=== PATIENT | female | born 1985 | race African-American/Black ===

== ENCOUNTER 2018-03-18 13:26 | Inpatient (IN) | payer OTHER ==
[2018-03-18 13:55] VITALS: BMI 42.0
[2018-03-18 14:11] LABS: HCG,QUALITATIVE URINE Negative
[2018-03-18 14:15] LABS: URINE APPEARANCE CLEAR; URINE BILIRUBIN NEGATIVE (<2.0 mg/dL); URINE COLOR LTYELLOW; URINE GLUCOSE (UA) NEGATIVE (NEGATIVE); URINE KETONE NEGATIVE (NEGATIVE); URINE LEUK ESTERASE NEGATIVE (NEGATIVE); URINE NITRITE NEGATIVE (NEGATIVE); URINE PROTEIN 3+ (NEGATIVE); URINE UROBILINOGEN NEGATIVE mg/dL (0.2-1.0)
[2018-03-18 14:57] LABS: EPI CELLS RARE /HPF (FEW); URINE BACTERIA RARE /hpf (NONE SEEN)
--- NOTE | 2018-03-18 15:08 | PDOC ---
History of Present Illness - General Chief Complaint: Pain Stated Complaint: PAIN Time Seen by Provider: 03/18/18 14:32 History Source: Patient Exam Limitations: No Limitations - History of Present Illness Initial Comments: 03/18/18 19:04 Patient is a 32-year-old female with past medical history of lupus, chronic kidney disease, who presents to the ER with right flank pain for one week. Patient states that she feels like the pain is stabbing her in the back. She also states she has some pain when she is and has some associated right lower quadrant tenderness. She was referred to the ER by her infection control practitioner for a CAT scan of her kidneys. Patient denies fevers, chills, nausea, vomiting, diarrhea, constipation, chest pain, shortness of breath, edema and lightheadedness. Past History - Travel Traveled outside of the country in the last 30 days: No Close contact w/someone who was outside of country & ill: No - Past Medical History Allergies/Adverse Reactions: Allergies Allergy/AdvReac Type Severity Reaction Status Date / Time oxycodone [Oxycodone] Allergy Intermediate Hives Verified 03/18/18 13:44 gabapentin Allergy Swelling Verified 03/18/18 13:44 lactose Allergy Verified 03/18/18 13:44 shellfish derived Allergy Verified 03/18/18 13:44 Home Medications: Ambulatory Orders Hydroxychloroquine Sulfate 200 mg PO BID 08/06/12 Mycophenolate Mofetil [Cellcept -] 360 mg PO BID 08/06/12 Simvastatin [Zocor -] 20 mg PO DAILY 08/06/12 predniSONE [Deltasone -] 10 mg PO DAILY 08/06/12 Losartan Potassium [Cozaar] 100 mg PO DAILY 05/14/15 Spironolactone [Aldactone -] 25 mg PO BID 05/14/15 Furosemide [Lasix -] 40 mg PO DAILY 11/29/15 Amitriptyline HCl [Elavil -] 25 mg PO HS 03/18/18 Amlodipine Besylate [Norvasc -] 10 mg PO DAILY 03/18/18 Guar Gum [Benefiber] 1 each PO BID PRN 03/18/18 Metoprolol Tartrate [Lopressor] 100 mg PO BID 03/18/18 Torsemide [Demadex -] 20 mg PO BID 03/18/18 Tramadol HCl/Acetaminophen [Ultracet Tablet] 1 each PO QID PRN 03/18/18 Zolpidem Tartrate [Ambien] 10 mg PO HS PRN 03/18/18 Simvastatin 20 mg PO HS 03/19/18 Anemia: No Asthma: Yes (NO RECENT ATTACK) Cancer: No Cardiac Disorders: No CVA: No COPD: No CHF: No Dementia: No Diabetes: No GI Disorders: Yes (GERD. GASTRITIS) Disorders: Yes (H/O RENAL BX) HTN: Yes Hypercholesterolemia: Yes Seizures: No Thyroid Disease: No - Surgical History Abdominal Surgery: Yes (REPAIR UMBILICAL HERNIA) Appendectomy: No Cardiac Surgery: No Cholecystectomy: No Lung Surgery: No Neurologic Surgery: No Orthopedic Surgery: No - Suicide/Smoking/Psychosocial Hx Smoking Status: No Smoking History: Never smoked Have you smoked in the past 12 months: No Number of Cigarettes Smoked Daily: 0 Hx Alcohol Use: Yes (SOCIALLY) Drug/Substance Use Hx: No Substance Use Type: None Review of Systems - Review of Systems Able to Perform ROS?: Yes Comments:: 03/18/18 18:54 CONSTITUTIONAL: Absent: fever, chills, diaphoresis, generalized weakness, malaise, loss of appetite HEENT: Absent: rhinorrhea, nasal congestion, throat pain, throat swelling, difficulty swallowing, mouth swelling, ear pain, eye pain, visual Changes CARDIOVASCULAR: Absent: chest pain, loss of consciousness, palpitations, irregular heart rate, peripheral edema RESPIRATORY: Absent: cough, shortness of breath, dyspnea with exertion, orthopnea, wheezing, stridor, hemoptysis GASTROINTESTINAL: Present: abdominal pain Absent: abdominal pain, abdominal distension, nausea, vomiting, diarrhea, constipation, melena, hematochezia GENITOURINARY: Present: R flank pain Absent: dysuria, frequency, urgency, hesitancy, hematuria , flank pain, genital pain MUSCULOSKELETAL: Absent: myalgia, arthralgia, joint swelling SKIN: Absent: rash, itching, pallor HEMATOLOGIC/IMMUNOLOGIC: Absent: easy bleeding, easy bruising, lymphadenopathy, frequent infections ENDOCRINE: Absent: unexplained weight gain, unexplained weight loss, heat intolerance, cold intolerance NEUROLOGIC: Absent: headache, focal weakness or paresthesias, dizziness, unsteady gait, seizure, mental status changes, bladder or bowel incontinence PSYCHIATRIC: Absent: anxiety, depression, suicidal or homicidal ideation, hallucinations. Is the patient limited Guinean proficient: No *Physical Exam - Vital Signs Last Vital Signs Temp Pulse Resp BP Pulse Ox 98.5 F 116 H 18 174/110 H 100 03/18/18 13:53 03/18/18 13:53 03/18/18 13:53 03/18/18 13:53 03/18/18 13:53 - Physical Exam Comments: 03/18/18 18:54 GENERAL: Well developed, well nourished. Awake and alert. No acute distress. HEENT: Normocephalic, atraumatic. PERRLA, EOMI. No conjunctival pallor. Sclera are non- icteric. Moist mucous membranes. Oropharynx is clear. NECK: Supple. Full ROM. No JVD. Carotid pulses 2+ and symmetric, without bruits. No thyromegaly. No lymphadenopathy. CARDIOVASCULAR: Regular rate and rhythm. No murmurs, rubs, or gallops. Distal pulses are 2+ and symmetric. PULMONARY: No evidence of respiratory distress. Lungs clear to auscultation bilaterally. No wheezing, rales or rhonchi. ABDOMINAL: TTP RLQ. Soft. Non-distended. No rebound or guarding. No organomegaly. Normoactive bowel sounds. MUSCULOSKELETAL Normal range of motion at all joints. No bony deformities or tenderness. (+) R CVA tenderness. EXTREMITIES: No cyanosis. No clubbing. No edema. No calf tenderness. SKIN: Warm and dry. Normal capillary refill. No rashes. No jaundice. NEUROLOGICAL: Alert, awake, appropriate. Cranial nerves 2-12 intact. No deficits to light touch and temperature in face, upper extremities and lower extremities. No motor deficits in the in face, upper extremities and lower extremities. Normoreflexic in the upper and lower extremities. Normal speech. Toes are down- going bilaterally. Gait is normal without ataxia. PSYCHIATRIC: Cooperative. Good eye contact. Appropriate mood and affect. Moderate Sedation - Procedure Monitoring Vital Signs: Procedure Monitoring Vital Signs Temperature 98.5 F 03/18/18 13:53 Pulse Rate 116 H 03/18/18 13:53 Respiratory Rate 18 03/18/18 13:53 Blood Pressure 174/110 H 03/18/18 13:53 O2 Sat by Pulse Oximetry (%) 100 03/18/18 13:53 ED Treatment Course - LABORATORY CBC & Chemistry Diagram: 03/19/18 09:32 03/19/18 09:32 - ADDITIONAL ORDERS Additional order review: Laboratory Results 03/18/18 13:50 Urine Color Ltyellow Urine Appearance Clear Urine pH 5.0 Ur Specific [place] 1.013 Urine Protein 3+ H Urine Glucose (UA) Negative Urine Ketones Negative Urine Blood 1+ H Urine Nitrite Negative Urine Bilirubin Negative Urine Urobilinogen Negative Ur Leukocyte Esterase Negative Urine WBC (Auto) 3 Urine RBC (Auto) <1 Ur Epithelial Cells Rare Urine Bacteria Rare Urine HCG, Qual Negative Medical Decision Making - Medical Decision Making 03/18/18 19:26 Patient is alert here female past medical history of lupus who presents to the ER with 1 week of right flank pain. On exam patient with right flank tenderness. Lab work shows no leukocytosis at this time. Urine positive for blood, os [place]. Patient sent for CT and pending results. Sign out given to KALINA Nelson *DC/Admit/Observation/Transfer Diagnosis at time of Disposition: Acute on chronic renal failure Qualifiers: Acute renal failure type: unspecified Chronic kidney disease stage: stage 3 ( moderate) Qualified Code(s): N17.9 - Acute kidney failure, unspecified - Referrals - Patient Instructions - Post Discharge Activity
[2018-03-18 17:46] LABS: BASO % 0.9 % (0-2.0); EOS % 1.2 % (0-4.5); HEMATOCRIT 28.3 % (32.4-45.2); HEMOGLOBIN 9.5 GM/dL (10.7-15.3); LYMPH % 8.7 % (8-40); MCH 28.9 pg (25.7-33.7); MCHC 33.4 g/dl (32.0-36.0); MEAN CELL VOLUME 86.5 fl (80-96); MEAN PLT VOLUME 10.5 fl (7.5-11.1); MONO % 6.4 % (3.8-10.2); NEUT % 82.8 % (42.8-82.8); PLATELET COUNT 139 K/MM3 (134-434); RBC 3.27 M/mm3 (3.60-5.2); RDW 14.4 % (11.6-15.6)
[2018-03-18 18:11] LABS: ALBUMIN 2.4 g/dl (3.4-5.0); ALK PHOS 50 U/L (45-117); ANION GAP 7 MMOL/L (8-16); BILIRUBIN,TOTAL 0.2 mg/dL (0.2-1); BLOOD UREA NITROGEN 35 mg/dL (7-18); CALCIUM 8.2 mg/dL (8.5-10.1); CHLORIDE 113 mmol/L (98-107); CO2 25 mmol/L (21-32); GLUCOSE,RANDOM 102 mg/dL (74-106); POTASSIUM 4.2 mmol/L (3.5-5.1); SGOT/AST 19 U/L (15-37); SGPT/ALT 23 U/L (13-61); SODIUM 145 mmol/L (136-145); TOT PROT 4.8 g/dl (6.4-8.2)
[2018-03-18] MEDS ORDERED: SODIUM CHLORIDE 1,000 ML IV STA (19:09)
[2018-03-18] MEDS ORDERED: ACETAMINOPHEN 1000 MG/100 ML VIAL (NON FORMULARY) IVPB ONE (19:09)
[2018-03-18] MEDS ORDERED: ACETAMINOPHEN INJECTION 100 ML IVPB ONE (21:12)
--- NOTE | 2018-03-18 23:03 | PDOC ---
*Physical Exam - Vital Signs Last Vital Signs Temp Pulse Resp BP Pulse Ox 98.5 F 116 H 18 174/110 H 100 03/18/18 13:53 03/18/18 13:53 03/18/18 13:53 03/18/18 13:53 03/18/18 13:53 ED Treatment Course - LABORATORY CBC & Chemistry Diagram: 03/18/18 16:55 03/18/18 16:55 - ADDITIONAL ORDERS Additional order review: Laboratory Results 03/18/18 03/18/18 16:55 13:50 Sodium 145 Potassium 4.2 Chloride 113 H Carbon Dioxide 25 Anion Gap 7 L BUN 35 H Creatinine 4.0 H Creat Clearance w eGFR 12.98 Random Glucose 102 Calcium 8.2 L Total Bilirubin 0.2 AST 19 ALT 23 Alkaline Phosphatase 50 Total Protein 4.8 L Albumin 2.4 L Urine Color Ltyellow Urine Appearance Clear Urine pH 5.0 Ur Specific [place] 1.013 Urine Protein 3+ H Urine Glucose (UA) Negative Urine Ketones Negative Urine Blood 1+ H Urine Nitrite Negative Urine Bilirubin Negative Urine Urobilinogen Negative Ur Leukocyte Esterase Negative Urine WBC (Auto) 3 Urine RBC (Auto) <1 Ur Epithelial Cells Rare Urine Bacteria Rare Urine HCG, Qual Negative 03/18/18 16:55 RBC 3.27 L MCV 86.5 MCHC 33.4 RDW 14.4 D MPV 10.5 Neutrophils % 82.8 Lymphocytes % 8.7 D Monocytes % 6.4 Eosinophils % 1.2 Basophils % 0.9 - Medications Given in the ED: ED Medications Discontinued Medications Generic Name Dose Route Start Last Admin Trade Name Freq PRN Reason Stop Dose Admin Acetaminophen 1,000 mg 03/18/18 19:09 03/18/18 21:24 Ofirmev Injection - IVPB 03/18/18 19:10 1,000 mg ONCE ONE Administration Sodium Chloride 1,000 mls @ 1,000 mls/hr 03/18/18 19:09 03/18/18 21:24 Normal Saline - IV 03/18/18 20:08 1,000 mls/hr ASDIR STA Administration Medical Decision Making - Medical Decision Making Patient was signed out to me by KALINA Latham Patient resting in NAD, denies any pain CT A/P was negative for any acute findings Labs notable for Cr of 4 Patient endorses to me that her Cr was 2.69 around 4 months ago (has results on her phone; gets her care at [facility]) Concern for almost doubling of her Cr Do not think this is prerenal given patient does not appear dehydrated (denies vomiting, diarrhea); could be related to her lupus Patient's mixer diamond powder and rheumatologists are at [facility] and unable to reach at this time Will admit to hospital for further evaluation 03/18/18 22:59 *DC/Admit/Observation/Transfer Diagnosis at time of Disposition: Acute on chronic renal failure Qualifiers: Acute renal failure type: unspecified Chronic kidney disease stage: stage 3 ( moderate) Qualified Code(s): N17.9 - Acute kidney failure, unspecified; N18.3 - Chronic kidney disease, stage 3 (moderate) - Discharge Dispostion Decision to Admit order: Yes - Referrals Referrals: David Rangel MD [Primary Care Provider] - - Patient Instructions - Post Discharge Activity
--- NOTE | 2018-03-18 23:31 | HP ---
CHIEF COMPLAINT:Right Flank Pain PCP:David Rangel MD HISTORY OF PRESENT ILLNESS: Nury Mcneil is a 32 yr old F, medical condition RA, Lupus, HTN, Insomnia, CKD stage 3, presented to ED for c/o right flank pain x 1 week. pt called her Chicken Cleaner at [facility] and advised to go to the hospital to get scan done. pt seen in ED, looks comfortable, denies sob, chest pain, dizziness, reports decreased urine output for 1 week, has not been taking diuretics as prescribed, stopped taking over a week ago, due to having to constantly urinate at work. CT scan done, no hydronephrosis, pt able to pull up labs from Oct from [facility] , creat 2.68. In ED, unable to contact beam press operator at [facility], pt in agreement to be admitted ER course was notable for: (1)Creat 4.0 (2)decreased urine output (3)CT scan negative Recent Travel: PAST MEDICAL HISTORY:RA, Lupus, HTN, Insomnia, CKD stage 3 PAST SURGICAL HISTORY:Hernia repair Social History: Smoking:Denies Alcohol:Denies Drugs: Denies Family History: Allergies oxycodone [Oxycodone] Allergy (Intermediate, Verified 03/18/18 13:44) Hives gabapentin Allergy (Verified 03/18/18 13:44) Swelling lactose Allergy (Verified 03/18/18 13:44) shellfish derived Allergy (Verified 03/18/18 13:44) HOME MEDICATIONS: Home Medications Medication Instructions Recorded Hydroxychloroquine Sulfate 200 mg PO BID 08/06/12 Mycophenolate Mofetil [Cellcept -] 360 mg PO BID 08/06/12 Simvastatin [Zocor -] 20 mg PO DAILY 08/06/12 predniSONE [Deltasone -] 10 mg PO DAILY 08/06/12 Losartan Potassium [Cozaar] 100 mg PO DAILY 05/14/15 Spironolactone [Aldactone -] 25 mg PO BID 05/14/15 Furosemide [Lasix -] 40 mg PO DAILY 11/29/15 Amitriptyline HCl [Elavil -] 25 mg PO HS 03/18/18 Amlodipine Besylate [Norvasc -] 10 mg PO DAILY 03/18/18 Guar Gum [Benefiber] 1 each PO BID PRN 03/18/18 Metoprolol Tartrate [Lopressor] 100 mg PO BID 03/18/18 Torsemide [Demadex -] 20 mg PO BID 03/18/18 Tramadol HCl/Acetaminophen 1 each PO QID PRN 03/18/18 [Ultracet Tablet] Zolpidem Tartrate [Ambien] 10 mg PO HS PRN 03/18/18 REVIEW OF SYSTEMS CONSTITUTIONAL: Absent: fever, chills, diaphoresis, generalized weakness, malaise, loss of appetite, weight change HEENT: Absent: rhinorrhea, nasal congestion, throat pain, throat swelling, difficulty swallowing, mouth swelling, ear pain, eye pain, visual changes CARDIOVASCULAR: Absent: chest pain, syncope, palpitations, irregular heart rate, lightheadedness , peripheral edema RESPIRATORY: Absent: cough, shortness of breath, dyspnea with exertion, orthopnea, wheezing, stridor, hemoptysis GASTROINTESTINAL: Absent: abdominal pain, abdominal distension, nausea, vomiting, diarrhea, constipation, melena, hematochezia GENITOURINARY: +Right flank pain, decreased urine output Absent: dysuria, frequency, urgency, hesitancy, hematuria, genital pain MUSCULOSKELETAL: Absent: myalgia, arthralgia, joint swelling, back pain, neck pain SKIN: Absent: rash, itching, pallor HEMATOLOGIC/IMMUNOLOGIC: Absent: easy bleeding, easy bruising, lymphadenopathy, frequent infections ENDOCRINE: Absent: unexplained weight gain, unexplained weight loss, heat intolerance, cold intolerance NEUROLOGIC: Absent: headache, focal weakness or paresthesias, dizziness, unsteady gait, seizure, mental status changes, bladder or bowel incontinence PSYCHIATRIC: Absent: anxiety, depression, suicidal or homicidal ideation, hallucinations. PHYSICAL EXAMINATION Vital Signs - 24 hr 03/18/18 13:53 Temperature 98.5 F Pulse Rate 116 H Respiratory 18 Rate Blood Pressure 174/110 H O2 Sat by Pulse 100 Oximetry (%) GENERAL: Awake, alert, and fully oriented, in no acute distress. HEAD: Normal with no signs of trauma. EYES: Pupils equal, round and reactive to light, extraocular movements intact, sclera anicteric, conjunctiva clear. No lid lag. EARS, NOSE, THROAT: Ears normal, nares patent, oropharynx clear without exudates. Moist mucous membranes. NECK: Normal range of motion, supple without lymphadenopathy, JVD, or masses. LUNGS: Breath sounds equal, clear to auscultation bilaterally. No wheezes, and no crackles. No accessory muscle use. HEART: Regular rate and rhythm, normal S1 and S2 without murmur, rub or gallop. ABDOMEN: Soft, nontender, not distended, normoactive bowel sounds, no guarding, no rebound, no masses. No hepatomegaly or splenomegaly. MUSCULOSKELETAL: Normal range of motion at all joints. No bony deformities or tenderness. No CVA tenderness. UPPER EXTREMITIES: 2+ pulses, warm, well-perfused. No cyanosis. No clubbing. No peripheral edema. LOWER EXTREMITIES: 2+ pulses, warm, well-perfused. No calf tenderness. + 2 b/l pitting edema NEUROLOGICAL: Cranial nerves II-XII intact. Normal speech. Normal gait. PSYCHIATRIC: Cooperative. Good eye contact. Appropriate mood and affect. SKIN: Warm, dry, normal turgor, no rashes or lesions noted, normal capillary refill. Laboratory Results - last 24 hr 03/18/18 03/18/18 03/18/18 13:50 16:55 16:55 WBC 9.0 RBC 3.27 L Hgb 9.5 L Hct 28.3 L MCV 86.5 MCH 28.9 MCHC 33.4 RDW 14.4 D Plt Count 139 MPV 10.5 Absolute Neuts (auto) 7.5 Neutrophils % 82.8 Lymphocytes % 8.7 D Monocytes % 6.4 Eosinophils % 1.2 Basophils % 0.9 Nucleated RBC % 0 Sodium 145 Potassium 4.2 Chloride 113 H Carbon Dioxide 25 Anion Gap 7 L BUN 35 H Creatinine 4.0 H Creat Clearance w eGFR 12.98 Random Glucose 102 Calcium 8.2 L Total Bilirubin 0.2 AST 19 ALT 23 Alkaline Phosphatase 50 Total Protein 4.8 L Albumin 2.4 L Urine Color Ltyellow Urine Appearance Clear Urine pH 5.0 Ur Specific [place] 1.013 Urine Protein 3+ H Urine Glucose (UA) Negative Urine Ketones Negative Urine Blood 1+ H Urine Nitrite Negative Urine Bilirubin Negative Urine Urobilinogen Negative Ur Leukocyte Esterase Negative Urine WBC (Auto) 3 Urine RBC (Auto) <1 Ur Epithelial Cells Rare Urine Bacteria Rare Urine HCG, Qual Negative ASSESSMENT/PLAN: Nury Mcneil is a 32 yr old F, medical condition RA, Lupus, CKD stage 3, HTN, Insomnia admitted to observation Admitting Diagnosis Acute on Chronic Kidney Disease Chronic Problems RA Lupus HTN CKD stage 3 A/P: #acute on CKD stage 3, Lupus nephritis? -renal consult -renal US -monitor BMP -diuretics on hold #RA #Lupus -resume home meds -on prednisone -Rheum consult in AM #Right flank pain -CT negative -UA no leukocystosis #HTN -resume BB, norvasc Dispo: requires inpatient treatment Renal Diet DVT prophylaxis:Heparin q12hrs Visit type - Emergency Visit Emergency Visit: Yes Care time: The patient presented to the Emergency Department on the above date and was hospitalized for further evaluation of their emergent condition. - New Patient This patient is new to me today: Yes Date on this admission: 03/18/18 - Critical Care Critical Care patient: No
[2018-03-19] MEDS ORDERED: cloNIDine HCL 0.1 MG TABLET PO ONE (04:34)
[2018-03-19] MEDS ORDERED: PT OWN MED DRAWER 7, Y5N ONE (09:01)
[2018-03-19] MEDS: amLODIPine BESYLATE 10 MG TABLET (FP) PO SCH (09:49)
[2018-03-19] MEDS: METOPROLOL TARTRATE 50 MG TABLET (FP) PO SCH ×2 (09:49→21:37)
[2018-03-19] MEDS: HEPARIN NA (PORCINE) 5,000 UNITS/ML 1ML VIAL SQ SCH ×2 (09:50→21:37)
[2018-03-19 09:53] LABS: BASO % 1.1 % (0-2.0); EOS % 1.6 % (0-4.5); HEMATOCRIT 25.8 % (32.4-45.2); HEMOGLOBIN 8.4 GM/dL (10.7-15.3); LYMPH % 21.9 % (8-40); MCH 28.4 pg (25.7-33.7); MCHC 32.8 g/dl (32.0-36.0); MEAN CELL VOLUME 86.8 fl (80-96); MEAN PLT VOLUME 10.6 fl (7.5-11.1); MONO % 8.3 % (3.8-10.2); NEUT % 67.1 % (42.8-82.8); PLATELET COUNT 122 K/MM3 (134-434); RBC 2.97 M/mm3 (3.60-5.2); RDW 14.8 % (11.6-15.6); WHITE BLOOD COUNT 6.6 K/mm3 (4.0-10.0)
[2018-03-19] MEDS ORDERED: predniSONE 10 MG TABLET (UD) PO SCH (10:00)
[2018-03-19 10:25] LABS: ALK PHOS 41 U/L (45-117); ANION GAP 8 MMOL/L (8-16); BILIRUBIN,TOTAL 0.2 mg/dL (0.2-1); BLOOD UREA NITROGEN 35 mg/dL (7-18); CALCIUM 8.3 mg/dL (8.5-10.1); CHLORIDE 114 mmol/L (98-107); CO2 24 mmol/L (21-32); GLUCOSE,RANDOM 83 mg/dL (74-106); MAGNESIUM 1.9 mg/dL (1.8-2.4); POTASSIUM 4.1 mmol/L (3.5-5.1); SGOT/AST 16 U/L (15-37); SGPT/ALT 18 U/L (13-61); SODIUM 146 mmol/L (136-145); TOT PROT 4.2 g/dl (6.4-8.2)
--- NOTE | 2018-03-19 10:47 | CON.NEP ---
Consult Consult Specialty:: Nephrology Reason for Consultation:: lima - History of Present Illness Chief Complaint: back pain History of Present Illness: Nury Mcniel is a 32 yr old F with RA, Lupus, HTN, Insomnia, Biopsy proven lupus nephritis CKD stage 3, presented to ED for c/o back pain x1 week. pt called her Deputy Administrator at [facility] and advised to go to the hospital to get scan done. States she has been on multiple medications for her nephritis and her prednisone recently has been tapered. Her last creat 2.68 2 months ago. Denies sob, chest pain, dizziness, reports decreased urine output for 1 week, has not been taking diuretics as prescribed, stopped taking over a week ago, due to having to constantly urinate at work. CT scan done, no hydronephrosis, She still has foamy urine - History Source History Provided By: Patient Limitations to Obtaining History: No Limitations - Past Medical History Pulmonary: Yes: Asthma Renal/: Yes: Renal Inusuff ...LMP: 05/05/14 ...: No Rheumatology: Yes: Lupus, Rheumatoid Arthritis - Alcohol/Substance Use Hx Alcohol Use: Yes (SOCIALLY) - Smoking History Smoking history: Never smoked Have you smoked in the past 12 months: No Aproximately how many cigarettes per day: 0 Home Medications - Allergies Allergies/Adverse Reactions: Allergies Allergy/AdvReac Type Severity Reaction Status Date / Time oxycodone [Oxycodone] Allergy Intermediate Hives Verified 03/18/18 13:44 gabapentin Allergy Swelling Verified 03/18/18 13:44 lactose Allergy Verified 03/18/18 13:44 shellfish derived Allergy Verified 03/18/18 13:44 - Home Medications Home Medications: Ambulatory Orders Hydroxychloroquine Sulfate 200 mg PO BID 08/06/12 Mycophenolate Mofetil [Cellcept -] 360 mg PO BID 08/06/12 Simvastatin [Zocor -] 20 mg PO DAILY 08/06/12 predniSONE [Deltasone -] 10 mg PO DAILY 08/06/12 Losartan Potassium [Cozaar] 100 mg PO DAILY 05/14/15 Spironolactone [Aldactone -] 25 mg PO BID 05/14/15 Furosemide [Lasix -] 40 mg PO DAILY 11/29/15 Amitriptyline HCl [Elavil -] 25 mg PO HS 03/18/18 Amlodipine Besylate [Norvasc -] 10 mg PO DAILY 03/18/18 Guar Gum [Benefiber] 1 each PO BID PRN 03/18/18 Metoprolol Tartrate [Lopressor] 100 mg PO BID 03/18/18 Torsemide [Demadex -] 20 mg PO BID 03/18/18 Tramadol HCl/Acetaminophen [Ultracet Tablet] 1 each PO QID PRN 03/18/18 Zolpidem Tartrate [Ambien] 10 mg PO HS PRN 03/18/18 Review of Systems - Review of Systems Constitutional: reports: No Symptoms Eyes: reports: No Symptoms HENT: reports: No Symptoms Neck: reports: No Symptoms Cardiovascular: reports: Edema Respiratory: reports: SOB Gastrointestinal: reports: No Symptoms Genitourinary: reports: Other (reduced urine output) Breasts: reports: No Symptoms Reported Musculoskeletal: reports: Back Pain Neurological: reports: Other (neuropathy) Endocrine: reports: No Symptoms Hematology/Lymphatic: reports: No Symptoms Psychiatric: reports: No Symptoms Nephrology Consult - Height Height: 5 ft 9 in - Weight Weight: 285 lb 2 oz - BMI Body Mass Index (BMI): 42.0 - Lab Results CBC,BMP: CBC, BMP 03/19/18 09:32 03/19/18 09:32 Anion Gap: Anion Gap Anion Gap 8 MMOL/L (8-16) 03/19/18 09:32 - Imaging Cat Scan: Report Reviewed (no significant findings) - Physical Examination Vital Signs: Vital Signs Temperature 98.0 F 03/19/18 05:48 Pulse Rate 90 03/19/18 05:48 Respiratory Rate 18 03/19/18 05:48 Blood Pressure 156/108 H 03/19/18 05:48 O2 Sat by Pulse Oximetry (%) 99 03/19/18 02:59 Constitutional: Yes: Well Nourished, No Distress, Calm Eyes: Yes: Conjunctiva Clear HENT: Yes: Atraumatic Neck: Yes: Supple, Trachea Midline Cardiovascular: Yes: Regular Rate and Rhythm Respiratory: Yes: Regular, CTA Bilaterally Gastrointestinal: Yes: Normal Bowel Sounds, Soft Renal/: Yes: WNL Musculoskeletal: Yes: WNL Extremities: Yes: WNL Edema: LLE: 1+, RLE: 1+ Neurological: Yes: Alert, Oriented Psychiatric: Yes: Alert, Oriented Assessment/Plan IMPRESSION suspect worsening of her lupus nephritis possibly from being tapered on her prednisone. She does not want to increase the prednisone because she has symptoms from this but giben her proteinuria nad hematuria I think this is what should be done. She has tried Rituxan in past with poor response. Her back pain is likely related to the levoscoliosis she has in her lumbar area and not to her kidneys PLAN obtain records from internal sales at [facility] if possible would increase her prednisone to 60 mg for now and observe She will need a fistula if possible, though can be done as outpatient Ask rheum to eval here MV
[2018-03-19] MEDS: MYCOPHENOLATE SODIUM 360 MG TABLET.DR PO SCH ×2 (10:49→21:37)
[2018-03-19] MEDS: HYDROXYCHLOROQUINE SO4 200 MG TABLET (FP) PO SCH ×2 (10:49→21:37)
[2018-03-19] MEDS ORDERED: ACETAMINOPHEN 325 MG TABLET (FP) PO PRN (14:33)
[2018-03-19] MEDS ORDERED: traMADol HCL 50 MG TABLET PO ONE (14:35)
[2018-03-19] MEDS: predniSONE 20 MG TABLET (UD) PO SCH (15:15)
[2018-03-19] MEDS: ACETAMINOPHEN/CAFFEINE/BUTALBITAL 1 TAB PO PRN (17:23)
--- NOTE | 2018-03-19 19:21 | PN ---
Physical Exam: SUBJECTIVE: Patient seen and examined at the bedside. having headaches, at home she takes Naproxyn for headaches. asked her not to take nsaids as it may compromise her kidney function further. will order fiorecet. will benefit from neuro consult outpatient. OBJECTIVE: symphony coverage for dr herrera hypertensive today Vital Signs Period Temp Pulse Resp BP Sys/Garvin Pulse Ox Last 24 Hr 97.4 F-98.4 F 75-98 17-20 143-199/76-109 99-100 GENERAL: Awake, alert, and fully oriented, in no acute distress. HEAD: Normal with no signs of trauma. EYES: Pupils equal, round and reactive to light, extraocular movements intact, sclera anicteric, conjunctiva clear. No lid lag. EARS, NOSE, THROAT: Ears normal, nares patent, oropharynx clear without exudates. Moist mucous membranes. NECK: Normal range of motion, supple without lymphadenopathy, JVD, or masses. LUNGS: Breath sounds equal, clear to auscultation bilaterally. No wheezes, and no crackles. No accessory muscle use. HEART: Regular rate and rhythm, normal S1 and S2 without murmur, rub or gallop. ABDOMEN: Soft, nontender, not distended, normoactive bowel sounds, no guarding, no rebound, no masses. No hepatomegaly or splenomegaly. MUSCULOSKELETAL: Normal range of motion at all joints. No bony deformities or tenderness. No CVA tenderness. UPPER EXTREMITIES: 2+ pulses, warm, well-perfused. No cyanosis. No clubbing. No peripheral edema. LOWER EXTREMITIES: 2+ pulses, warm, well-perfused. No calf tenderness. + 2 b/l pitting edema NEUROLOGICAL: Cranial nerves II-XII intact. Normal speech. Normal gait. PSYCHIATRIC: Cooperative. Good eye contact. Appropriate mood and affect. SKIN: Warm, dry, normal turgor, no rashes or lesions noted, normal capillary refill. Laboratory Results - last 24 hr 03/19/18 03/19/18 09:32 09:32 WBC 6.6 RBC 2.97 L Hgb 8.4 L Hct 25.8 L MCV 86.8 MCH 28.4 MCHC 32.8 RDW 14.8 Plt Count 122 L MPV 10.6 Absolute Neuts (auto) 4.4 Neutrophils % 67.1 Lymphocytes % 21.9 D Monocytes % 8.3 Eosinophils % 1.6 Basophils % 1.1 Nucleated RBC % 0 Sodium 146 H Potassium 4.1 Chloride 114 H Carbon Dioxide 24 Anion Gap 8 BUN 35 H Creatinine 4.0 H Creat Clearance w eGFR 12.98 Random Glucose 83 Calcium 8.3 L Magnesium 1.9 Total Bilirubin 0.2 AST 16 ALT 18 Alkaline Phosphatase 41 L Total Protein 4.2 L Albumin 2.0 L Active Medications Generic Name Dose Route Start Last Admin Trade Name Freq PRN Reason Stop Dose Admin Acetaminophen/Butalbital/Caffeine 1 tablet 03/19/18 16:53 03/19/18 17:23 Fioricet - PO 1 tablet Q6H PRN Administration HEADACHE Amitriptyline HCl 25 mg 03/19/18 22:00 Elavil - PO HS MARCELLO Amlodipine Besylate 10 mg 03/19/18 10:00 03/19/18 09:49 Norvasc - PO 10 mg DAILY MARCELLO Administration Heparin Sodium (Porcine) 5,000 unit 03/19/18 10:00 03/19/18 09:50 Heparin - SQ 5,000 unit BID MARCELLO Administration Hydralazine HCl 10 mg 03/19/18 22:00 Apresoline - PO TID MARCELLO Hydroxychloroquine Sulfate 200 mg 03/19/18 10:00 03/19/18 10:49 Plaquenil - PO 200 mg BID MARCELLO Administration Metoprolol Tartrate 100 mg 03/19/18 10:00 03/19/18 09:49 Lopressor - PO 100 mg BID MARCELLO Administration Mycophenolate Sodium 360 mg 03/19/18 10:00 03/19/18 10:49 Mycophenolic Acid PO 360 mg BID MARCELLO Administration Prednisone 60 mg 03/19/18 11:00 03/19/18 15:15 Deltasone - PO Not Given DAILY MARCELLO ASSESSMENT/PLAN: Patient is a 32 yr old female with a past med hx of RA, Lupus, CKD stage 3, hypertension, morbid obesity and insomnia. She was found to have acute on chronic kidney disease and was placed on observation. Renal: Acute on chronic kidney disease Creat at 2.0 at base line, currently at 4.0. renal consulted and following Monitor labs, hold diuretics Right flank pain No evidence of kidney infection on imaging UA no leukocytosis Possible muscular skeletal. manage pain, renal dose meds. Rheum: Lupus, on prednisone rheum consulted Card: Hypertension, uncontrolled On BB, Norvasc, Hydralazine tid monitor bp Dispo: requires inpatient treatment Renal Diet DVT prophylaxis:Heparin q12hrs Visit type - Emergency Visit Emergency Visit: Yes ED Registration Date: 03/18/18 Care time: The patient presented to the Emergency Department on the above date and was hospitalized for further evaluation of their emergent condition. - New Patient This patient is new to me today: Yes Date on this admission: 03/19/18 - Critical Care Critical Care patient: No - Discharge Referral Referred to [facility] No
[2018-03-19] MEDS: hydrALAZINE HCL 10 MG TABLET PO SCH (21:36)
[2018-03-19] MEDS: AMITRIPTYLINE HCL 25 MG TABLET (FP) PO SCH (21:37)
[2018-03-19] MEDS ORDERED: ATORVASTATIN CA 20 MG TABLET (FP) PO ONE (23:04)
[2018-03-20] MEDS: hydrALAZINE HCL 10 MG TABLET PO SCH (06:05)
[2018-03-20] MEDS ORDERED: PT OWN MED DRAWER 7, Y5N ONE ×2 (09:36→20:39)
[2018-03-20] MEDS: ACETAMINOPHEN/CAFFEINE/BUTALBITAL 1 TAB PO PRN (09:42)
[2018-03-20] MEDS: predniSONE 20 MG TABLET (UD) PO SCH ×3 (09:43→14:18)
[2018-03-20] MEDS: HEPARIN NA (PORCINE) 5,000 UNITS/ML 1ML VIAL SQ SCH ×2 (09:44→22:40)
[2018-03-20] MEDS: MYCOPHENOLATE SODIUM 360 MG TABLET.DR PO SCH ×2 (09:44→22:39)
[2018-03-20] MEDS: METOPROLOL TARTRATE 50 MG TABLET (FP) PO SCH ×2 (09:44→22:39)
[2018-03-20] MEDS: amLODIPine BESYLATE 10 MG TABLET (FP) PO SCH (09:46)
[2018-03-20] MEDS: HYDROXYCHLOROQUINE SO4 200 MG TABLET (FP) PO SCH ×2 (09:46→22:39)
--- NOTE | 2018-03-20 11:12 | PN ---
Progress Note (short form) - Note Progress Note: RENAL Remains hypertensive has not taken the higher dose of prednisone because she is afraid she will get an infection She has been using nsaids because of cramping when taking diuretics Last Vital Signs Temp Pulse Resp BP Pulse Ox 98.0 F 66 20 198/131 H 100 03/20/18 06:00 03/20/18 06:00 03/20/18 06:00 03/20/18 06:00 03/20/18 02:00 lungs crackles at bases cvs s1s2 rr abd soft ext +edema neuro a+ox3 CBC, BMP 03/19/18 09:32 03/19/18 09:32 Current Medications Generic Name Dose Route Start Last Admin Trade Name Freq PRN Reason Stop Dose Admin Acetaminophen/Butalbital/Caffeine 1 tablet 03/19/18 16:53 03/20/18 09:42 Fioricet - PO 1 tablet Q6H PRN Administration HEADACHE Amitriptyline HCl 25 mg 03/19/18 22:00 03/19/18 21:37 Elavil - PO 25 mg HS MARCELLO Administration Amlodipine Besylate 10 mg 03/19/18 10:00 03/20/18 09:46 Norvasc - PO 10 mg DAILY MARCELLO Administration Atorvastatin Calcium 20 mg 03/20/18 22:00 Lipitor - PO HS MARCELLO Heparin Sodium (Porcine) 5,000 unit 03/19/18 10:00 03/20/18 09:44 Heparin - SQ 5,000 unit BID MARCELLO Administration Hydralazine HCl 25 mg 03/20/18 14:00 Apresoline - PO TID MARCELLO Hydroxychloroquine Sulfate 200 mg 03/19/18 10:00 03/20/18 09:46 Plaquenil - PO 200 mg BID MARCELLO Administration Metoprolol Tartrate 100 mg 03/19/18 10:00 03/20/18 09:44 Lopressor - PO 100 mg BID MARCELLO Administration Mycophenolate Sodium 360 mg 03/19/18 10:00 03/20/18 09:44 Mycophenolic Acid PO 360 mg BID MARCELLO Administration Prednisone 60 mg 03/19/18 11:00 03/20/18 09:43 Deltasone - PO 10 mg DAILY MARCELLO Administration IMPRESSION probable progression of her ckd due to decrease in steroid dose in addition to NSAID use for cramping caused by hypokalemia during diuretic use PLAN restart losartan and spironolactone she will take the prednisone monitor renal function renal sono MV
[2018-03-20] MEDS ORDERED: SPIRONOLACTONE 25 MG TABLET (FP) PO ONE (11:14)
[2018-03-20] MEDS: LOSARTAN POTASSIUM 50 MG TABLET (FP) PO SCH (11:36)
--- NOTE | 2018-03-20 11:58 | PN ---
Physical Exam: SUBJECTIVE: Patient seen ambulating around pod. feels well, not short of breath OBJECTIVE: bp uncontrolled overnight, consulted chief accounting officer patient denies cp or shortness of breath had an echo done 3 weeks ago hydralazine increased to 25mg tid avoid dropping pressure too quickly Vital Signs Period Temp Pulse Resp BP Sys/Garvin Pulse Ox Last 24 Hr 98.0 F-98.8 F 66-80 18-20 143-198/76-131 100-100 GENERAL: Awake, alert, and fully oriented, in no acute distress. HEAD: Normal with no signs of trauma. EYES: Pupils equal, round and reactive to light, extraocular movements intact, sclera anicteric, conjunctiva clear. No lid lag. EARS, NOSE, THROAT: Ears normal, nares patent, oropharynx clear without exudates. Moist mucous membranes. NECK: Normal range of motion, supple without lymphadenopathy, JVD, or masses. LUNGS: Breath sounds equal, clear to auscultation bilaterally. No wheezes, and no crackles. No accessory muscle use. HEART: Regular rate and rhythm, normal S1 and S2 without murmur, rub or gallop. ABDOMEN: Soft, nontender, not distended, normoactive bowel sounds, no guarding, no rebound, no masses. No hepatomegaly or splenomegaly. MUSCULOSKELETAL: Normal range of motion at all joints. No bony deformities or tenderness. No CVA tenderness. UPPER EXTREMITIES: 2+ pulses, warm, well-perfused. No cyanosis. No clubbing. No peripheral edema. LOWER EXTREMITIES: 2+ pulses, warm, well-perfused. No calf tenderness. + 2 b/l pitting edema NEUROLOGICAL: Cranial nerves II-XII intact. Normal speech. Normal gait. PSYCHIATRIC: Cooperative. Good eye contact. Appropriate mood and affect. SKIN: Warm, dry, normal turgor, no rashes or lesions noted, normal capillary refill. Active Medications Generic Name Dose Route Start Last Admin Trade Name Freq PRN Reason Stop Dose Admin Acetaminophen/Butalbital/Caffeine 1 tablet 03/19/18 16:53 03/20/18 09:42 Fioricet - PO 1 tablet Q6H PRN Administration HEADACHE Amitriptyline HCl 25 mg 03/19/18 22:00 03/19/18 21:37 Elavil - PO 25 mg HS MARCELLO Administration Amlodipine Besylate 10 mg 03/19/18 10:00 03/20/18 09:46 Norvasc - PO 10 mg DAILY MARCELLO Administration Atorvastatin Calcium 20 mg 03/20/18 22:00 Lipitor - PO HS [facility] Heparin Sodium (Porcine) 5,000 unit 03/19/18 10:00 03/20/18 09:44 Heparin - SQ 5,000 unit BID MARCELLO Administration Hydralazine HCl 25 mg 03/20/18 14:00 Apresoline - PO TID MARCELLO Hydroxychloroquine Sulfate 200 mg 03/19/18 10:00 03/20/18 09:46 Plaquenil - PO 200 mg BID MARCELLO Administration Losartan Potassium 100 mg 03/20/18 11:15 03/20/18 11:36 Cozaar - PO 100 mg DAILY MARCELLO Administration Metoprolol Tartrate 100 mg 03/19/18 10:00 03/20/18 09:44 Lopressor - PO 100 mg BID MARCELLO Administration Mycophenolate Sodium 360 mg 03/19/18 10:00 03/20/18 09:44 Mycophenolic Acid PO 360 mg BID MARCELLO Administration Prednisone 60 mg 03/19/18 11:00 03/20/18 11:39 Deltasone - PO 60 mg DAILY MARCELLO Administration ASSESSMENT/PLAN: Patient is a 32 yr old female with a past med hx of RA, Lupus, CKD stage 3, hypertension, morbid obesity and insomnia. She was found to have acute on chronic kidney disease and was placed on observation. Renal: Acute on chronic kidney disease Creat at 2.0 at base line, currently at 4.0. renal consulted and following Monitor labs, hold diuretics renal u/s negative for acute findings Right flank pain, improved No evidence of kidney infection on imaging UA no leukocytosis Possible muscular skeletal. manage pain, renal dose meds. Rheum: Lupus, on prednisone rheum consulted Card: Hypertension, uncontrolled Resumed losartan 100mg, Aldactone 25 bid, hydralazine 10 tid Continue Lopressor 100 bid, Norvasc 10 qd, Zocor 20 hs cardiology following Dispo: requires inpatient treatment Renal Diet DVT prophylaxis:Heparin q12hrs Visit type - Emergency Visit Emergency Visit: Yes ED Registration Date: 03/18/18 Care time: The patient presented to the Emergency Department on the above date and was hospitalized for further evaluation of their emergent condition. - New Patient This patient is new to me today: No - Critical Care Critical Care patient: No - Discharge Referral Referred to [facility] No
[2018-03-20 12:56] LABS: BASO % 0.7 % (0-2.0); EOS % 1.6 % (0-4.5); HEMATOCRIT 30.5 % (32.4-45.2); HEMOGLOBIN 9.9 GM/dL (10.7-15.3); LYMPH % 10.1 % (8-40); MCH 28.2 pg (25.7-33.7); MCHC 32.5 g/dl (32.0-36.0); MEAN PLT VOLUME 10.3 fl (7.5-11.1); MONO % 4.7 % (3.8-10.2); NEUT % 82.9 % (42.8-82.8); PLATELET COUNT 139 K/MM3 (134-434); RBC 3.51 M/mm3 (3.60-5.2); RDW 14.7 % (11.6-15.6); WHITE BLOOD COUNT 9.5 K/mm3 (4.0-10.0)
--- NOTE | 2018-03-20 13:12 | CON.CARD ---
Consult Consult Specialty:: Cardiology Referred by:: Hospitalist Medicine - David Rangel MD Reason for Consultation:: Hypertensive urgency - History of Present Illness Chief Complaint: ANEL History of Present Illness: Nury Mcneil is a 32 yr old F, medical condition RA, Lupus, HTN, Insomnia, CKD stage 3, presented to ED for c/o right flank pain x 1 week. pt called her Water Resource Consultant at [facility] and advised to go to the hospital to get CT scan done which was negative for nephrolithiasis. Pt denies sob, chest pain, dizziness, true syncope, reports decreased urine output for 1 week, has not been taking diuretics as prescribed, stopped taking over a week ago, due to having to constantly urinate at work, also used NSAIDs for back pain. pt able to pull up labs from Dec from [place], nia 2.68, BP elevated during hospitalization. Family Assistant: Mary Urena MD [phone] - History Source History Provided By: Patient Limitations to Obtaining History: No Limitations - Past Medical History Pulmonary: Yes: Asthma Renal/: Yes: Renal Inusuff ...LMP: 05/05/14 ...: No Rheumatology: Yes: Lupus, Rheumatoid Arthritis - Alcohol/Substance Use Hx Alcohol Use: Yes (SOCIALLY) - Smoking History Smoking history: Never smoked Have you smoked in the past 12 months: No Aproximately how many cigarettes per day: 0 Home Medications - Allergies Allergies/Adverse Reactions: Allergies Allergy/AdvReac Type Severity Reaction Status Date / Time oxycodone [Oxycodone] Allergy Intermediate Hives Verified 03/18/18 13:44 gabapentin Allergy Swelling Verified 03/18/18 13:44 lactose Allergy Verified 03/18/18 13:44 shellfish derived Allergy Verified 03/18/18 13:44 - Home Medications Home Medications: Ambulatory Orders Hydroxychloroquine Sulfate 200 mg PO BID 08/06/12 Mycophenolate Mofetil [Cellcept -] 360 mg PO BID 08/06/12 Simvastatin [Zocor -] 20 mg PO DAILY 08/06/12 predniSONE [Deltasone -] 10 mg PO DAILY 08/06/12 Losartan Potassium [Cozaar] 100 mg PO DAILY 05/14/15 Spironolactone [Aldactone -] 25 mg PO BID 05/14/15 Furosemide [Lasix -] 40 mg PO DAILY 11/29/15 Amitriptyline HCl [Elavil -] 25 mg PO HS 03/18/18 Amlodipine Besylate [Norvasc -] 10 mg PO DAILY 03/18/18 Guar Gum [Benefiber] 1 each PO BID PRN 03/18/18 Metoprolol Tartrate [Lopressor] 100 mg PO BID 03/18/18 Torsemide [Demadex -] 20 mg PO BID 03/18/18 Tramadol HCl/Acetaminophen [Ultracet Tablet] 1 each PO QID PRN 03/18/18 Zolpidem Tartrate [Ambien] 10 mg PO HS PRN 03/18/18 Simvastatin 20 mg PO HS 03/19/18 Vital Signs: Vital Signs Temperature 98.0 F 03/20/18 06:00 Pulse Rate 66 03/20/18 06:00 Respiratory Rate 20 03/20/18 06:00 Blood Pressure 198/131 H 03/20/18 06:00 O2 Sat by Pulse Oximetry (%) 100 03/20/18 02:00 Constitutional: Yes: No Distress, Calm Neck: Yes: Supple Respiratory: Yes: Regular, CTA Bilaterally Gastrointestinal: Yes: Normal Bowel Sounds, Soft Cardiovascular: Yes: Regular Rate and Rhythm JVD: No Carotid Bruit: No Heart Sounds: Yes: S1, S2 Edema: No - Other Data Labs, Other Data: CBC, BMP 03/20/18 12:25 NSR @ 76 1st deg AVB PR[facility] Imaging - Results Cat Scan: Report Reviewed (No obstruction) Ultrasound: Report Reviewed (No hydro) Problem List - Problems (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 DISEASE IN SYSTEMIC LUPUS ERYTHEMATOSUS (2) Hypertensive heart disease Code(s): I11.9 - HYPERTENSIVE HEART DISEASE WITHOUT HEART FAILURE Qualifiers: Heart failure presence: without heart failure Qualified Code(s): I11.9 - Hypertensive heart disease without heart failure (3) Rheumatoid arthritis Code(s): M06.9 - RHEUMATOID ARTHRITIS, UNSPECIFIED Qualifiers: Rheumatoid factor presence: unspecified presence (4) Acute on chronic renal failure Code(s): N17.9 - ACUTE KIDNEY FAILURE, UNSPECIFIED; N18.9 - CHRONIC KIDNEY DISEASE, UNSPECIFIED Qualifiers: Acute renal failure type: unspecified Chronic kidney disease stage: stage 3 (moderate) Qualified Code(s): N17.9 - Acute kidney failure, unspecified; N18.3 - Chronic kidney disease, stage 3 (moderate) Assessment/Plan 1. Acute on CKD due to decrease in steroid dose in addition to NSAID use for cramping caused by hypokalemia during diuretic use 2. Lupus nephritis 3. Hypertensive urgency 4. RA PLAN 1. Resumed losartan 100qd, Aldactone 25 bid, hydralazine 25 tid per renal 2. Continue Lopressor 100 bid, Norvasc 10 qd, Zocor 20 qhs 3. Maintain on Plaquenil, Cellcept, prednisone per rheum, avoid NSAIDs 4. Had echo 3 weeks ago to assess ventricular and valve fxn, will obtain tomorrow 5. Thank you for consultative opportunity
[2018-03-20 13:24] LABS: ALBUMIN 2.4 g/dl (3.4-5.0); ALK PHOS 50 U/L (45-117); ANION GAP 9 MMOL/L (8-16); BILIRUBIN,TOTAL 0.3 mg/dL (0.2-1); BLOOD UREA NITROGEN 35 mg/dL (7-18); CALCIUM 8.3 mg/dL (8.5-10.1); CHLORIDE 110 mmol/L (98-107); CO2 23 mmol/L (21-32); GLUCOSE,RANDOM 92 mg/dL (74-106); POTASSIUM 4.1 mmol/L (3.5-5.1); SGOT/AST 12 U/L (15-37); SGPT/ALT 20 U/L (13-61); SODIUM 142 mmol/L (136-145); TOT PROT 4.8 g/dl (6.4-8.2)
[2018-03-20] MEDS ORDERED: hydrALAZINE HCL 25 MG TABLET (FP) PO SCH (14:00)
[2018-03-20] MEDS: hydrALAZINE HCL 50 MG TABLET (FP) PO SCH ×2 (20:29→22:40)
[2018-03-20] MEDS ORDERED: hydrALAZINE HCL 10 MG TABLET PO SCH (22:00)
[2018-03-20] MEDS: ATORVASTATIN CA 20 MG TABLET (FP) PO SCH (22:40)
[2018-03-20] MEDS: AMITRIPTYLINE HCL 25 MG TABLET (FP) PO SCH (22:40)
[2018-03-21] MEDS: ACETAMINOPHEN/CAFFEINE/BUTALBITAL 1 TAB PO PRN ×2 (06:34→17:39)
[2018-03-21] MEDS: hydrALAZINE HCL 50 MG TABLET (FP) PO SCH ×3 (06:35→22:03)
--- NOTE | 2018-03-21 08:33 | PN ---
Progress Note (short form) - Note Progress Note: Symphony coverage appreciated. 32 y.o F known from the office . She is being followed for SLE, lupus nephritis at [facility] and recently underwent kidney biopsy. Her Prednisone was decreased from 10 to 7.5 mg She was taking Naprosyn fo low left back pain. She presented to the ER due to LLback pain . urinary infection w/u was negative and renal US negative. Creatinine on admission was 4, reportedly Cr was 2 last at [facility]. She was seen by nephrology and rheum and cardiology. Still c/o left low back pain. Vital Signs (72 hours) 03/18/18 03/18/18 03/18/18 13:53 19:45 23:23 Temperature 98.5 F 98.4 F Pulse Rate 116 H Pulse Rate [ Left Apical] Respiratory 18 Rate Blood Pressure 174/110 H Blood Pressure [Left Arm] O2 Sat by Pulse 100 100 100 Oximetry (%) 03/19/18 03/19/18 03/19/18 02:59 03:23 05:48 Temperature 98.0 F 98.4 F 98.0 F Pulse Rate 98 H 90 Pulse Rate [ 85 Left Apical] Respiratory 17 17 18 Rate Blood Pressure 199/102 H 156/108 H Blood Pressure 165/93 [Left Arm] O2 Sat by Pulse 99 Oximetry (%) 03/19/18 03/19/18 03/19/18 10:00 12:00 14:00 Temperature 97.4 F L Pulse Rate 84 75 80 Pulse Rate [ Left Apical] Respiratory 20 20 20 Rate Blood Pressure 184/109 H 150/76 145/103 H Blood Pressure [Left Arm] O2 Sat by Pulse Oximetry (%) 03/19/18 03/19/18 03/19/18 18:00 18:03 21:00 Temperature 98.4 F Pulse Rate 76 Pulse Rate [ Left Apical] Respiratory 20 20 Rate Blood Pressure 143/96 Blood Pressure [Left Arm] O2 Sat by Pulse 100 Oximetry (%) 03/19/18 03/20/18 03/20/18 22:00 01:38 02:00 Temperature 98.8 F 98.1 F Pulse Rate 72 69 Pulse Rate [ Left Apical] Respiratory 18 18 18 Rate Blood Pressure 183/106 H 154/108 H Blood Pressure [Left Arm] O2 Sat by Pulse 100 Oximetry (%) 0103/20/18 03/20/18 06:00 09:00 10:00 Temperature 98.0 F 98.3 F Pulse Rate 66 77 Pulse Rate [ Left Apical] Respiratory 20 20 20 Rate Blood Pressure 198/131 H 155/117 H Blood Pressure [Left Arm] O2 Sat by Pulse Oximetry (%) 03/20/18 03/20/18 03/20/18 12:00 13:53 15:41 Temperature 98.1 F Pulse Rate 76 72 76 Pulse Rate [ Left Apical] Respiratory 20 Rate Blood Pressure 150/116 H 143/98 146/102 H Blood Pressure [Left Arm] O2 Sat by Pulse Oximetry (%) 03/20/18 03/20/18 03/20/18 17:39 17:40 18:00 Temperature 98.4 F Pulse Rate 72 73 Pulse Rate [ Left Apical] Respiratory 20 20 20 Rate Blood Pressure 152/112 H 158/109 H Blood Pressure [Left Arm] O2 Sat by Pulse Oximetry (%) 03/20/18 03/20/18 03/21/18 21:00 22:40 02:00 Temperature 98.2 F 97.9 F Pulse Rate 74 69 Pulse Rate [ Left Apical] Respiratory 18 18 Rate Blood Pressure 193/124 H 135/90 Blood Pressure [Left Arm] O2 Sat by Pulse 99 99 Oximetry (%) 03/21/18 05:36 Temperature 98 F Pulse Rate 70 Pulse Rate [ Left Apical] Respiratory 18 Rate Blood Pressure 154/95 Blood Pressure [Left Arm] O2 Sat by Pulse Oximetry (%) On PE Obese young F in NAD in bed. Neck supple No JVD Lungs are Clear Heart S1S2 regular Abdomen soft, NT, NO HSM EXT no CCE Left low back tenderness. No CCE Laboratory Results - last 24 hr 03/20/18 03/20/18 12:25 12:25 WBC 9.5 RBC 3.51 L Hgb 9.9 L Hct 30.5 L D MCV 87.0 MCH 28.2 MCHC 32.5 RDW 14.7 Plt Count 139 MPV 10.3 Absolute Neuts (auto) 7.9 Neutrophils % 82.9 H D Lymphocytes % 10.1 D Monocytes % 4.7 Eosinophils % 1.6 Basophils % 0.7 Nucleated RBC % 0 Sodium 142 Potassium 4.1 Chloride 110 H Carbon Dioxide 23 Anion Gap 9 BUN 35 H Creatinine 4.0 H Creat Clearance w eGFR 12.98 Random Glucose 92 Calcium 8.3 L Total Bilirubin 0.3 AST 12 L ALT 20 Alkaline Phosphatase 50 Total Protein 4.8 L Albumin 2.4 L Current Active Problems Problem Status Onset Acute on chronic renal failure Acute Hypertensive heart disease Acute Lupus nephritis Acute Left low back pain HTN Acute Plan Follow CMP, Tramadol for pain CT low back-r/o compression fracture, abscess Rheumatology consult
[2018-03-21] MEDS ORDERED: PT OWN MED DRAWER 7, Y5N ONE (09:01)
[2018-03-21] MEDS: METOPROLOL TARTRATE 50 MG TABLET (FP) PO SCH ×2 (09:06→22:01)
[2018-03-21] MEDS: predniSONE 20 MG TABLET (UD) PO SCH (09:06)
[2018-03-21] MEDS: LOSARTAN POTASSIUM 50 MG TABLET (FP) PO SCH (09:06)
[2018-03-21] MEDS: traMADol HCL 50 MG TABLET PO SCH ×3 (09:06→22:02)
[2018-03-21] MEDS: amLODIPine BESYLATE 10 MG TABLET (FP) PO SCH (09:06)
[2018-03-21] MEDS: MYCOPHENOLATE SODIUM 360 MG TABLET.DR PO SCH ×2 (09:07→22:02)
[2018-03-21] MEDS: HEPARIN NA (PORCINE) 5,000 UNITS/ML 1ML VIAL SQ SCH ×2 (09:07→22:01)
[2018-03-21] MEDS: HYDROXYCHLOROQUINE SO4 200 MG TABLET (FP) PO SCH ×2 (09:08→22:02)
[2018-03-21 09:24] LABS: BASO % 0.8 % (0-2.0); HEMATOCRIT 32.4 % (32.4-45.2); HEMOGLOBIN 9.9 GM/dL (10.7-15.3); LYMPH % 10.5 % (8-40); MCH 26.8 pg (25.7-33.7); MCHC 30.6 g/dl (32.0-36.0); MEAN CELL VOLUME 87.4 fl (80-96); NEUT % 84.7 % (42.8-82.8); PLATELET COUNT 150 K/MM3 (134-434); RDW 14.5 % (11.6-15.6); WHITE BLOOD COUNT 10.3 K/mm3 (4.0-10.0)
[2018-03-21 10:01] LABS: ALBUMIN 2.4 g/dl (3.4-5.0); ALK PHOS 48 U/L (45-117); ANION GAP 10 MMOL/L (8-16); BILIRUBIN,TOTAL 0.6 mg/dL (0.2-1); BLOOD UREA NITROGEN 45 mg/dL (7-18); CALCIUM 8.3 mg/dL (8.5-10.1); CHLORIDE 110 mmol/L (98-107); CO2 22 mmol/L (21-32); CREATININE 4.5 mg/dL (0.55-1.3); GLUCOSE,RANDOM 116 mg/dL (74-106); SGOT/AST 12 U/L (15-37); SGPT/ALT 19 U/L (13-61); SODIUM 142 mmol/L (136-145); TOT PROT 4.8 g/dl (6.4-8.2)
--- NOTE | 2018-03-21 12:01 | PN ---
Progress Note, Physician History of Present Illness: Right flank pain improved. - Current Medication List Current Medications: Active Medications Acetaminophen/Butalbital/Caffeine (Fioricet -) 1 tablet PO Q6H PRN PRN Reason: HEADACHE Last Admin: 03/21/18 06:34 Dose: 1 tablet Amitriptyline HCl (Elavil -) 25 mg PO HS [facility] Last Admin: 03/20/18 22:40 Dose: 25 mg Amlodipine Besylate (Norvasc -) 10 mg PO DAILY [facility] Last Admin: 03/21/18 09:06 Dose: 10 mg Atorvastatin Calcium (Lipitor -) 20 mg PO HS [facility] Last Admin: 03/20/18 22:40 Dose: 20 mg Heparin Sodium (Porcine) (Heparin -) 5,000 unit SQ BID [facility] Last Admin: 03/21/18 09:07 Dose: Not Given Hydralazine HCl (Apresoline -) 50 mg PO TID [facility] Last Admin: 03/21/18 06:35 Dose: 50 mg Hydroxychloroquine Sulfate (Plaquenil -) 200 mg PO BID [facility] Last Admin: 03/21/18 09:08 Dose: 200 mg Losartan Potassium (Cozaar -) 100 mg PO DAILY [facility] Last Admin: 03/21/18 09:06 Dose: 100 mg Metoprolol Tartrate (Lopressor -) 100 mg PO BID [facility] Last Admin: 03/21/18 09:06 Dose: 100 mg Mycophenolate Sodium (Mycophenolic Acid) 360 mg PO BID [facility] Last Admin: 03/21/18 09:07 Dose: 360 mg Prednisone (Deltasone -) 60 mg PO DAILY [facility] Last Admin: 03/21/18 09:06 Dose: 60 mg Tramadol HCl (Ultram -) 25 mg PO TID [facility] Last Admin: 03/21/18 09:06 Dose: 25 mg - Objective Vital Signs: Vital Signs Temperature 97.6 F 03/21/18 10:00 Pulse Rate 73 03/21/18 10:00 Respiratory Rate 18 03/21/18 10:00 Blood Pressure 150/93 03/21/18 10:00 O2 Sat by Pulse Oximetry (%) 99 03/21/18 09:00 Constitutional: Yes: No Distress, Calm Neck: Yes: Supple Cardiovascular: Yes: Regular Rate and Rhythm Respiratory: Yes: Regular, Diminished Gastrointestinal: Yes: Normal Bowel Sounds, Soft, Abdomen, Obese Edema: Yes Edema: LLE: 1+, RLE: 1+ Labs: CBC, BMP 03/21/18 08:53 03/21/18 08:53 Problem List - Problems (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 DISEASE IN SYSTEMIC LUPUS ERYTHEMATOSUS (2) Hypertensive heart disease Code(s): I11.9 - HYPERTENSIVE HEART DISEASE WITHOUT HEART FAILURE Qualifiers: Heart failure presence: without heart failure Qualified Code(s): I11.9 - Hypertensive heart disease without heart failure (3) Rheumatoid arthritis Code(s): M06.9 - RHEUMATOID ARTHRITIS, UNSPECIFIED Qualifiers: Rheumatoid factor presence: unspecified presence (4) Acute on chronic renal failure Code(s): N17.9 - ACUTE KIDNEY FAILURE, UNSPECIFIED; N18.9 - CHRONIC KIDNEY DISEASE, UNSPECIFIED Qualifiers: Acute renal failure type: unspecified Chronic kidney disease stage: stage 3 (moderate) Qualified Code(s): N17.9 - Acute kidney failure, unspecified; N18.3 - Chronic kidney disease, stage 3 (moderate) Assessment/Plan 1. Acute on CKD due to decrease in steroid dose in addition to NSAID use for cramping caused by hypokalemia during diuretic use 2. Lupus nephritis 3. Hypertensive urgency 4. RA PLAN 1. Resumed losartan 100qd and hydralazine 25 tid per renal 2. Continue Lopressor 100 bid, Norvasc 10 qd, Zocor 20 qhs 3. Maintain on Plaquenil, Cellcept, prednisone per rheum, avoid NSAIDs 4. Had echo 3 weeks ago to assess ventricular and valve fxn, will obtain today 5. CT low back-r/o compression fracture
--- NOTE | 2018-03-21 16:52 | CONSULT ---
Consult Consult Specialty:: Rheumatology - History of Present Illness History of Present Illness: The patient is a 32 year old female with history of systemic lupus erythematosus , HTN, CKD stage 3, and history of a new kidney biopsy 3 weeks ago, admitted with a 1 week history of right flank pain and polyuria.. I followed the patient in my office from 10/02/10 to 11/04/15. The patient has lupus since age 17. She has been treated with Prednisone, Hydrxychloroquine, Mycophenolate, Cyclosporin and Tacrolimus. 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 There was mild tubular atrophy, interstitial fibrosis and inflammation. The patient has had progressive chronic kidney disease: Creatinine on 10/2013 was 0.95, on 10/21: 1.68 and on this admission 4.0. On 2015 she had severe hypertension that was poorly controlled and she was not compliant with her medications. At the present time she is been followed by Dr. Ju Davies at [facility]. In 2017 she was treated with pulse steroids and after the 1st dose apparently she developed systemic Herpes Zoster. Furthermore she reports she is allergic to Lyrica and Gabapentin. Three months ago she had a new kidney biopsy, the patient reports she was told there is no progression of lupus activity in the kidney biopsy. (I was not able to obtain report of the biopsy). At the present time she is on Hydroxychloroquine 200 mg BID, Mycophenolate 360 mg/d and Prednisone 7 mg/d. She continues taking the same medication Renal ultrasound and CT of abdomen and pelvis were reported as normal. Laboratory work-up revealed a CBC with a WBC of 10.3, Hgb 9,9, HCT 32.4 and platelets 156, Creatinine on admission was 4 and today 4.5. Urinalysis with protein 3+ and blood 1+. Since admission she has not have fever, - History Source History Provided By: Patient, Medical Record Limitations to Obtaining History: No Limitations - Past Medical History Pulmonary: Yes: Asthma Renal/: Yes: Renal Inusuff ...LMP: 05/05/14 ...: No Rheumatology: Yes: Lupus, Rheumatoid Arthritis - Alcohol/Substance Use Hx Alcohol Use: Yes (SOCIALLY) - Smoking History Smoking history: Never smoked Have you smoked in the past 12 months: No Aproximately how many cigarettes per day: 0 Home Medications - Allergies Allergies/Adverse Reactions: Allergies Allergy/AdvReac Type Severity Reaction Status Date / Time oxycodone [Oxycodone] Allergy Intermediate Hives Verified 03/18/18 13:44 gabapentin Allergy Swelling Verified 03/18/18 13:44 lactose Allergy Verified 03/18/18 13:44 shellfish derived Allergy Verified 03/18/18 13:44 - Home Medications Home Medications: Ambulatory Orders Hydroxychloroquine Sulfate 200 mg PO BID 08/06/12 Mycophenolate Mofetil [Cellcept -] 360 mg PO BID 08/06/12 Simvastatin [Zocor -] 20 mg PO DAILY 08/06/12 predniSONE [Deltasone -] 10 mg PO DAILY 08/06/12 Losartan Potassium [Cozaar] 100 mg PO DAILY 05/14/15 Spironolactone [Aldactone -] 25 mg PO BID 05/14/15 Furosemide [Lasix -] 40 mg PO DAILY 11/29/15 Amitriptyline HCl [Elavil -] 25 mg PO HS 03/18/18 Amlodipine Besylate [Norvasc -] 10 mg PO DAILY 03/18/18 Guar Gum [Benefiber] 1 each PO BID PRN 03/18/18 Metoprolol Tartrate [Lopressor] 100 mg PO BID 03/18/18 Torsemide [Demadex -] 20 mg PO BID 03/18/18 Tramadol HCl/Acetaminophen [Ultracet Tablet] 1 each PO QID PRN 03/18/18 Zolpidem Tartrate [Ambien] 10 mg PO HS PRN 03/18/18 Simvastatin 20 mg PO HS 03/19/18 Review of Systems - Review of Systems Constitutional: reports: Malaise Eyes: reports: No Symptoms HENT: reports: No Symptoms Neck: reports: No Symptoms Cardiovascular: reports: No Symptoms Respiratory: reports: No Symptoms Gastrointestinal: reports: No Symptoms Musculoskeletal: reports: Other (The patient denies joint pain. Tenderness in the right flank) Physical Exam Vital Signs: Vital Signs Temperature 98.1 F 03/21/18 14:57 Pulse Rate 79 03/21/18 14:57 Respiratory Rate 18 03/21/18 14:57 Blood Pressure 150/89 03/21/18 14:57 O2 Sat by Pulse Oximetry (%) 99 03/21/18 09:00 Eyes: Yes: WNL HENT: Yes: WNL Neck: Yes: WNL Cardiovascular: Yes: WNL Respiratory: Yes: WNL Gastrointestinal: Yes: WNL Musculoskeletal: Yes: Other (No active joints Tenderness in the right flank) Labs: CBC, BMP 03/21/18 08:53 03/21/18 08:53 Laboratory Tests 03/18/18 03/21/18 13:50 08:53 Calcium 8.3 L Total Bilirubin 0.6 AST 12 L ALT 19 Alkaline Phosphatase 48 Total Protein 4.8 L Albumin 2.4 L Urine Appearance Clear Urine pH 5.0 Ur Specific [place] 1.013 Urine Protein 3+ H Urine Glucose (UA) Negative Urine Ketones Negative Urine Blood 1+ H Urine Nitrite Negative Urine Bilirubin Negative Urine Urobilinogen Negative Ur Leukocyte Esterase Negative Urine WBC (Auto) 3 Urine RBC (Auto) <1 Problem List - Problems (1) Acute flank pain Assessment/Plan: The patient has flank pain in are where she had a kidney biopsy 3 months ago. No fever. US and CT were negative. CT of the spine - report is pending. Etiology of pain is not clear. Even thoug unlikely, rule out abscess. Code(s): R10.9 - UNSPECIFIED ABDOMINAL PAIN (2) Lupus nephritis Assessment/Plan: before school history of lupus glomerulonephriotis with progression of chronic kidney disease. She had a kidney biopsy three months ago, (I was not able to obtain repoit). 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 Continue same medications. It is unlikely that the lupus nephritis is related to the flank pain. Code(s): M32.14 - GLOMERULAR DISEASE IN SYSTEMIC LUPUS ERYTHEMATOSUS
--- NOTE | 2018-03-21 17:19 | PN ---
Progress Note, Physician History of Present Illness: Pt seen and examined at bedside. She is awake and alert. Pt says that she follows with Dr Gan for renal. I called Dr Jang and he says he will take over her care. Pt is admitted with worsening renal failure. She has been taking nsaids at home and had various antibiotics for URI. - Current Medication List Current Medications: Active Medications Acetaminophen/Butalbital/Caffeine (Fioricet -) 1 tablet PO Q6H PRN PRN Reason: HEADACHE Last Admin: 03/21/18 06:34 Dose: 1 tablet Amitriptyline HCl (Elavil -) 25 mg PO HS [facility] Last Admin: 03/20/18 22:40 Dose: 25 mg Amlodipine Besylate (Norvasc -) 10 mg PO DAILY [facility] Last Admin: 03/21/18 09:06 Dose: 10 mg Atorvastatin Calcium (Lipitor -) 20 mg PO HS [facility] Last Admin: 03/20/18 22:40 Dose: 20 mg Heparin Sodium (Porcine) (Heparin -) 5,000 unit SQ BID [facility] Last Admin: 03/21/18 09:07 Dose: Not Given Hydralazine HCl (Apresoline -) 50 mg PO TID [facility] Last Admin: 03/21/18 13:06 Dose: 50 mg Hydroxychloroquine Sulfate (Plaquenil -) 200 mg PO BID [facility] Last Admin: 03/21/18 09:08 Dose: 200 mg Losartan Potassium (Cozaar -) 100 mg PO DAILY [facility] Last Admin: 03/21/18 09:06 Dose: 100 mg Metoprolol Tartrate (Lopressor -) 100 mg PO BID [facility] Last Admin: 03/21/18 09:06 Dose: 100 mg Mycophenolate Sodium (Mycophenolic Acid) 360 mg PO BID [facility] Last Admin: 03/21/18 09:07 Dose: 360 mg Prednisone (Deltasone -) 60 mg PO DAILY [facility] Last Admin: 03/21/18 09:06 Dose: 60 mg Tramadol HCl (Ultram -) 25 mg PO TID [facility] Last Admin: 03/21/18 13:06 Dose: 25 mg - Objective Vital Signs: Vital Signs Temperature 98.1 F 03/21/18 14:57 Pulse Rate 79 03/21/18 14:57 Respiratory Rate 18 03/21/18 14:57 Blood Pressure 150/89 03/21/18 14:57 O2 Sat by Pulse Oximetry (%) 99 03/21/18 09:00 Constitutional: Yes: Calm Eyes: Yes: Conjunctiva Clear HENT: Yes: Atraumatic Cardiovascular: Yes: S1, S2 Respiratory: Yes: CTA Bilaterally Gastrointestinal: Yes: Soft, Abdomen, Obese Genitourinary: Yes: WNL Extremities: Yes: WNL Edema: Yes Edema: LLE: Trace, RLE: Trace Neurological: Yes: Oriented Psychiatric: Yes: Oriented Labs: CBC, BMP 03/21/18 08:53 03/21/18 08:53 Assessment/Plan Current Medications Generic Name Dose Route Start Last Admin Trade Name Freq PRN Reason Stop Dose Admin Acetaminophen/Butalbital/Caffeine 1 tablet 03/19/18 16:53 03/21/18 06:34 Fioricet - PO 1 tablet Q6H PRN Administration HEADACHE Amitriptyline HCl 25 mg 03/19/18 22:00 03/20/18 22:40 Elavil - PO 25 mg HS MARCELLO Administration Amlodipine Besylate 10 mg 03/19/18 10:00 03/21/18 09:06 Norvasc - PO 10 mg DAILY MARCELLO Administration Atorvastatin Calcium 20 mg 03/20/18 22:00 03/20/18 22:40 Lipitor - PO 20 mg HS MARCELLO Administration Heparin Sodium (Porcine) 5,000 unit 03/19/18 10:00 03/21/18 09:07 Heparin - SQ Not Given BID [facility] Hydralazine HCl 50 mg 03/20/18 19:00 03/21/18 13:06 Apresoline - PO 50 mg TID MARCELLO Administration Hydroxychloroquine Sulfate 200 mg 03/19/18 10:00 03/21/18 09:08 Plaquenil - PO 200 mg BID MARCELLO Administration Losartan Potassium 100 mg 03/20/18 11:15 03/21/18 09:06 Cozaar - PO 100 mg DAILY MARCELLO Administration Metoprolol Tartrate 100 mg 03/19/18 10:00 03/21/18 09:06 Lopressor - PO 100 mg BID MARCELLO Administration Mycophenolate Sodium 360 mg 03/19/18 10:00 03/21/18 09:07 Mycophenolic Acid PO 360 mg BID MARCELLO Administration Prednisone 60 mg 03/19/18 11:00 03/21/18 09:06 Deltasone - PO 60 mg DAILY MARCELLO Administration Tramadol HCl 25 mg 03/21/18 08:45 03/21/18 13:06 Ultram - PO 25 mg TID MARCELLO Administration Impression 1. CKD 2. ANEL 3. SLE 4. HTN 5. obesity Plan - pt with worsening renal failure - check kidney and bladder ultrasound - repeat labs in am - avoid nsaids - she was also on antibiotics at home - pt says her last kidney biopsy was a few months ago and she follows with Dr Zapata - monitor bp - hold losartan tomorrow if renal function is worse - Dr Jang will resume care for the patient
[2018-03-21] MEDS: ATORVASTATIN CA 20 MG TABLET (FP) PO SCH (22:01)
[2018-03-21] MEDS: AMITRIPTYLINE HCL 25 MG TABLET (FP) PO SCH (22:03)
[2018-03-22] MEDS: hydrALAZINE HCL 50 MG TABLET (FP) PO SCH ×2 (05:31→15:10)
[2018-03-22] MEDS: traMADol HCL 50 MG TABLET PO SCH ×3 (05:32→22:02)
[2018-03-22] MEDS: HEPARIN NA (PORCINE) 5,000 UNITS/ML 1ML VIAL SQ SCH ×2 (09:44→22:01)
[2018-03-22] MEDS: METOPROLOL TARTRATE 50 MG TABLET (FP) PO SCH (09:44)
[2018-03-22] MEDS: amLODIPine BESYLATE 10 MG TABLET (FP) PO SCH (09:44)
[2018-03-22] MEDS: predniSONE 20 MG TABLET (UD) PO SCH (09:44)
[2018-03-22] MEDS ORDERED: PT OWN MED DRAWER 7, Y5N ONE (10:02)
[2018-03-22] MEDS: MYCOPHENOLATE SODIUM 360 MG TABLET.DR PO SCH ×2 (10:03→22:05)
[2018-03-22] MEDS: HYDROXYCHLOROQUINE SO4 200 MG TABLET (FP) PO SCH ×2 (10:03→22:03)
--- NOTE | 2018-03-22 12:13 | PN ---
Progress Note, Physician Chief Complaint: Feels better today. Less back pain. CT LS- mild disc bulging and retrolisthesis. 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 there Dr Miah Rice [phone] - Current Medication List Current Medications: Active Medications Acetaminophen/Butalbital/Caffeine (Fioricet -) 1 tablet PO Q6H PRN PRN Reason: HEADACHE Last Admin: 03/21/18 17:39 Dose: 1 tablet Amitriptyline HCl (Elavil -) 25 mg PO HS [facility] Last Admin: 03/21/18 22:03 Dose: 25 mg Amlodipine Besylate (Norvasc -) 10 mg PO DAILY [facility] Last Admin: 03/22/18 09:44 Dose: 10 mg Atorvastatin Calcium (Lipitor -) 20 mg PO HS [facility] Last Admin: 03/21/18 22:01 Dose: 20 mg Heparin Sodium (Porcine) (Heparin -) 5,000 unit SQ BID [facility] Last Admin: 03/22/18 09:44 Dose: Not Given Hydralazine HCl (Apresoline -) 50 mg PO TID [facility] Last Admin: 03/22/18 05:31 Dose: 50 mg Hydroxychloroquine Sulfate (Plaquenil -) 200 mg PO BID [facility] Last Admin: 03/22/18 10:03 Dose: 200 mg Metoprolol Tartrate (Lopressor -) 100 mg PO BID [facility] Last Admin: 03/22/18 09:44 Dose: 100 mg Mycophenolate Sodium (Mycophenolic Acid) 360 mg PO BID [facility] Last Admin: 03/22/18 10:03 Dose: 360 mg Prednisone (Deltasone -) 60 mg PO DAILY [facility] Last Admin: 03/22/18 09:44 Dose: 60 mg Tramadol HCl (Ultram -) 25 mg PO TID [facility] Last Admin: 03/22/18 05:32 Dose: 25 mg - Objective Vital Signs: Vital Signs Temperature 98 F 03/22/18 10:00 Pulse Rate 78 03/22/18 10:00 Respiratory Rate 18 03/22/18 10:00 Blood Pressure 144/84 03/22/18 10:00 O2 Sat by Pulse Oximetry (%) 99 03/21/18 09:00 Constitutional: Yes: Anxious, Mild Distress, Obese Eyes: Yes: Conjunctiva Clear, EOM Intact HENT: Yes: Atraumatic, Normocephalic Neck: Yes: Supple, Trachea Midline Cardiovascular: Yes: Regular Rate and Rhythm Respiratory: Yes: Regular, CTA Bilaterally Gastrointestinal: Yes: Normal Bowel Sounds, Soft, Abdomen, Obese ...Rectal Exam: Yes: Deferred Genitourinary: No: Anuria, Bladder Distention Breast(s): Yes: WNL Musculoskeletal: Yes: Back Pain Extremities: No: Amputation, Calf Tenderness Edema: No Integumentary: Yes: WNL Neurological: Yes: Alert, Oriented. No: Aphasia, Dysarthria ...Motor Strength: WNL Psychiatric: Yes: WNL Labs: CBC, BMP 03/21/18 08:53 03/21/18 08:53 Problem List - Problems (1) Acute flank pain Assessment/Plan: Pain improved Kidney US-medical disease CT as above Code(s): R10.9 - UNSPECIFIED ABDOMINAL PAIN (2) Acute on chronic renal failure Assessment/Plan: Mycophenolate, Prednisone 60 mg Nephrology f/u Message left with [facility] nephrology Code(s): N17.9 - ACUTE KIDNEY FAILURE, UNSPECIFIED; N18.9 - CHRONIC KIDNEY DISEASE, UNSPECIFIED Qualifiers: Acute renal failure type: unspecified Chronic kidney disease stage: stage 3 (moderate) Qualified Code(s): N17.9 - Acute kidney failure, unspecified; N18.3 - Chronic kidney disease, stage 3 (moderate) (3) Hypertensive heart disease Assessment/Plan: Continue f/u BP Increase Hydralazine 100 mg TID Code(s): I11.9 - HYPERTENSIVE HEART DISEASE WITHOUT HEART FAILURE Qualifiers: Heart failure presence: without heart failure Qualified Code(s): I11.9 - Hypertensive heart disease without heart failure
--- NOTE | 2018-03-22 13:28 | PN ---
Progress Note, Physician Chief Complaint: Not in distress History of Present Illness: Patient was seen and examined. Awake and alert. Chart was reviewed Denies chest pain, SOB or palpitations - Current Medication List Current Medications: Active Medications Acetaminophen/Butalbital/Caffeine (Fioricet -) 1 tablet PO Q6H PRN PRN Reason: HEADACHE Last Admin: 03/21/18 17:39 Dose: 1 tablet Amitriptyline HCl (Elavil -) 25 mg PO HS [facility] Last Admin: 03/21/18 22:03 Dose: 25 mg Amlodipine Besylate (Norvasc -) 10 mg PO DAILY [facility] Last Admin: 03/22/18 09:44 Dose: 10 mg Atorvastatin Calcium (Lipitor -) 20 mg PO HS [facility] Last Admin: 03/21/18 22:01 Dose: 20 mg Heparin Sodium (Porcine) (Heparin -) 5,000 unit SQ BID [facility] Last Admin: 03/22/18 09:44 Dose: Not Given Hydralazine HCl (Apresoline -) 100 mg PO TID [facility] Hydroxychloroquine Sulfate (Plaquenil -) 200 mg PO BID [facility] Last Admin: 03/22/18 10:03 Dose: 200 mg Metoprolol Tartrate (Lopressor -) 100 mg PO BID [facility] Last Admin: 03/22/18 09:44 Dose: 100 mg Mycophenolate Sodium (Mycophenolic Acid) 360 mg PO BID [facility] Last Admin: 03/22/18 10:03 Dose: 360 mg Prednisone (Deltasone -) 60 mg PO DAILY [facility] Last Admin: 03/22/18 09:44 Dose: 60 mg Tramadol HCl (Ultram -) 25 mg PO TID [facility] Last Admin: 03/22/18 05:32 Dose: 25 mg - Objective Vital Signs: Vital Signs Temperature 98 F 03/22/18 10:00 Pulse Rate 78 03/22/18 10:00 Respiratory Rate 18 03/22/18 10:00 Blood Pressure 144/84 03/22/18 10:00 O2 Sat by Pulse Oximetry (%) 99 03/21/18 09:00 HENT: Yes: Atraumatic Neck: Yes: Supple Cardiovascular: Yes: Regular Rate and Rhythm, S1, S2 Respiratory: Yes: CTA Bilaterally Gastrointestinal: Yes: Normal Bowel Sounds, Soft. No: Tenderness Edema: Yes Edema: LLE: 1+, RLE: 1+ Labs: CBC, BMP 03/21/18 08:53 03/21/18 08:53 Problem List - Problems (1) Acute on chronic renal failure Code(s): N17.9 - ACUTE KIDNEY FAILURE, UNSPECIFIED; N18.9 - CHRONIC KIDNEY DISEASE, UNSPECIFIED Qualifiers: Acute renal failure type: unspecified Chronic kidney disease stage: stage 3 (moderate) Qualified Code(s): N17.9 - Acute kidney failure, unspecified; N18.3 - Chronic kidney disease, stage 3 (moderate) (2) Hypertensive heart disease Code(s): I11.9 - HYPERTENSIVE HEART DISEASE WITHOUT HEART FAILURE Qualifiers: Heart failure presence: without heart failure Qualified Code(s): I11.9 - Hypertensive heart disease without heart failure (3) Lupus nephritis Code(s): M32.14 - GLOMERULAR DISEASE IN SYSTEMIC LUPUS ERYTHEMATOSUS (4) Rheumatoid arthritis Code(s): M06.9 - RHEUMATOID ARTHRITIS, UNSPECIFIED Qualifiers: Rheumatoid factor presence: unspecified presence Assessment/Plan 1. Acute on CKD due to decrease in steroid dose in addition to NSAID use 2. Lupus nephritis 3. HTN 4. RA PLAN: 1. Continue Losartan and Hydralazine 2. Continue Lopressor, Norvasc and Zocor 3. Maintain on Plaquenil, Cellcept, Prednisone per rheumatology and avoid NSAIDs 4. Review prior echocardiography report Further plans are to follow John Adhikari MD
--- NOTE | 2018-03-22 15:53 | PN ---
Progress Note (short form) - Note Progress Note: Renal follow up for ANEL Pt seen and examined at the bedside reports feeling ok, flank pain is improved no sob, cp, abd pain, N/V/D No overt uremic symptoms making urine has some leg swelling no lupus flare symptoms apart from hand swelling no fever or chills Vital Signs Temperature 98.6 F 03/22/18 14:59 Pulse Rate 81 03/22/18 14:59 Respiratory Rate 18 03/22/18 14:59 Blood Pressure 136/106 H 03/22/18 14:59 O2 Sat by Pulse Oximetry (%) 99 03/21/18 09:00 Intake & Output 03/19/18 03/20/18 03/21/18 03/22/18 23:59 23:59 23:59 23:59 Intake Total 2329 725 0625 350 Output Total 1440 Balance 1200 950 400 350 Weight 129.331 kg 129.274 kg NAD awake and alert neck supple no JVD RRR CTA soft NT/ND, obese Trace LE edema CBC, BMP 03/21/18 08:53 03/21/18 08:53 Current Medications Acetaminophen/Butalbital/Caffeine (Fioricet -) 1 tablet PO Q6H PRN PRN Reason: HEADACHE Last Admin: 03/21/18 17:39 Dose: 1 tablet Amitriptyline HCl (Elavil -) 25 mg PO HS [facility] Last Admin: 03/21/18 22:03 Dose: 25 mg Amlodipine Besylate (Norvasc -) 10 mg PO DAILY [facility] Last Admin: 03/22/18 09:44 Dose: 10 mg Atorvastatin Calcium (Lipitor -) 20 mg PO HS [facility] Last Admin: 03/21/18 22:01 Dose: 20 mg Heparin Sodium (Porcine) (Heparin -) 5,000 unit SQ BID [facility] Last Admin: 03/22/18 09:44 Dose: Not Given Hydralazine HCl (Apresoline -) 100 mg PO TID [facility] Last Admin: 03/22/18 15:10 Dose: 100 mg Hydroxychloroquine Sulfate (Plaquenil -) 200 mg PO BID [facility] Last Admin: 03/22/18 10:03 Dose: 200 mg Metoprolol Tartrate (Lopressor -) 100 mg PO BID [facility] Last Admin: 03/22/18 09:44 Dose: 100 mg Mycophenolate Sodium (Mycophenolic Acid) 360 mg PO BID [facility] Last Admin: 03/22/18 10:03 Dose: 360 mg Prednisone (Deltasone -) 60 mg PO DAILY [facility] Last Admin: 03/22/18 09:44 Dose: 60 mg Tramadol HCl (Ultram -) 25 mg PO TID [facility] Last Admin: 03/22/18 15:10 Dose: 25 mg This is a 32 year old AA woman with hx of SLE, Lupus Nephritis, CKD with baseline Cr ~2.6, Hypertension who presented with right flank pain and found to have ANEL. #ANEL on CKD #Lupus Nephritis #CKD stage 3/4 #Hypertension #Flank pain #Anemia Etiology of ANEL likely due to hemodynamic injury from NSAID + ARB vs. Acute Lupus Nephritis flare Would benefit from transfer to [facility] so she could be followed by her primary branch office administrator as pt may require renal biopsy and intensification of immunosuppresive meds. Pt with all prior biopsies done there and has been getting her outpatient follow up there. No emergent indication for COMPANY DRIVER withhold any further ABDULAZIZ/ARB No NSIADS Check C3/C4/CHF50, KATIE, Anti-DS DNA levels Rheum follow up US showed no obstructive process change metoprolol to labetalol for better BP control Check iron profile Transfer to [facility] pending Thank you will follow Suhail Campbell Do 32 yr old F, medical condition RA, Lupus, HTN, Insomnia, CKD stage 3, presented to ED for c/o right flank pain x 1 week
[2018-03-22] MEDS ORDERED: SODIUM CHLORIDE 0.45% 1,000 ML IV SCH (16:00)
[2018-03-22] MEDS: LABETALOL HCL 200 MG TABLET (FP) PO SCH (17:23)
[2018-03-22] MEDS: ATORVASTATIN CA 20 MG TABLET (FP) PO SCH (22:02)
[2018-03-22] MEDS: AMITRIPTYLINE HCL 25 MG TABLET (FP) PO SCH (22:02)
[2018-03-22] MEDS ORDERED: ONDANSETRON 4 MG/2 ML VIAL IVPUSH PRN (23:08)
[2018-03-23] MEDS ORDERED: ONDANSETRON 4 MG TABLET PO PRN (01:12)
[2018-03-23] MEDS: traMADol HCL 50 MG TABLET PO SCH (06:32)
[2018-03-23] MEDS: LABETALOL HCL 200 MG TABLET (FP) PO SCH (06:42)
[2018-03-23] MEDS: hydrALAZINE HCL 50 MG TABLET (FP) PO SCH (06:42)
[2018-03-23] MEDS ORDERED: predniSONE 20 MG TABLET (UD) PO SCH (07:02)
--- NOTE | 2018-03-23 07:12 | PN ---
Progress Note, Physician Chief Complaint: Episode of low BP yesterday noted. The patient was discussed yesterday with spreader from [facility] and Dr Campbell. BP meds changed to Labetalol/Norvasc/Hydralazine. The patient feels well, no complaints. History of Present Illness: SLE Lupus nephritis HTN - Current Medication List Current Medications: Active Medications Acetaminophen/Butalbital/Caffeine (Fioricet -) 1 tablet PO Q6H PRN PRN Reason: HEADACHE Last Admin: 03/21/18 17:39 Dose: 1 tablet Amitriptyline HCl (Elavil -) 25 mg PO HS [facility] Last Admin: 03/22/18 22:02 Dose: 25 mg Amlodipine Besylate (Norvasc -) 10 mg PO DAILY [facility] Last Admin: 03/22/18 09:44 Dose: 10 mg Atorvastatin Calcium (Lipitor -) 20 mg PO HS [facility] Last Admin: 03/22/18 22:02 Dose: 20 mg Heparin Sodium (Porcine) (Heparin -) 5,000 unit SQ BID [facility] Last Admin: 03/22/18 22:01 Dose: Not Given Hydralazine HCl (Apresoline -) 100 mg PO TID [facility] Last Admin: 03/23/18 06:42 Dose: Not Given Hydroxychloroquine Sulfate (Plaquenil -) 200 mg PO BID [facility] Last Admin: 03/22/18 22:03 Dose: 200 mg Sodium Chloride (1/2 Normal Saline) 1,000 mls @ 83 mls/hr IV ASDIR [facility] Stop: 03/23/18 09:59 Last Admin: 03/22/18 17:29 Dose: 83 mls/hr Labetalol HCl (Normodyne -) 300 mg PO TID [facility] Last Admin: 03/23/18 06:42 Dose: Not Given Mycophenolate Sodium (Mycophenolic Acid) 360 mg PO BID [facility] Last Admin: 03/22/18 22:05 Dose: 360 mg Ondansetron HCl (Zofran -) 4 mg PO Q8H PRN PRN Reason: NAUSEA AND/OR VOMITING Prednisone (Deltasone -) 40 mg PO DAILY [facility] Tramadol HCl (Ultram -) 25 mg PO TID [facility] Last Admin: 03/23/18 06:32 Dose: 25 mg - Objective Vital Signs: Vital Signs Temperature 98.3 F 03/23/18 06:20 Pulse Rate 79 01/16/19 06:20 Respiratory Rate 18 03/23/18 06:20 Blood Pressure 130/61 03/23/18 06:20 O2 Sat by Pulse Oximetry (%) 99 03/22/18 21:00 Constitutional: Yes: No Distress, Calm, Obese Eyes: Yes: Conjunctiva Clear, EOM Intact HENT: Yes: Atraumatic, Normocephalic Neck: Yes: Supple, Trachea Midline. No: Lymphadenopathy Cardiovascular: Yes: Regular Rate and Rhythm, S1, S2. No: Bradycardia, Tachycardia Respiratory: Yes: Regular, CTA Bilaterally Gastrointestinal: Yes: Normal Bowel Sounds, Soft, Abdomen, Obese ...Rectal Exam: Yes: Deferred Genitourinary: No: Anuria, Bladder Distention Breast(s): Yes: WNL Musculoskeletal: Yes: WNL Extremities: Yes: WNL Edema: No Integumentary: Yes: WNL Neurological: Yes: WNL, Alert, Oriented ...Motor Strength: WNL Psychiatric: Yes: WNL Labs: CBC, BMP 03/21/18 08:53 Problem List - Problems (1) Acute flank pain Assessment/Plan: Pain resolved Kidney US-medical disease CT as above Code(s): R10.9 - UNSPECIFIED ABDOMINAL PAIN (2) Acute on chronic renal failure Assessment/Plan: Patient Creat prior to admission 3.9. Will follow creatinine today If stable patient will follow with her spreader as outpatient Code(s): N17.9 - ACUTE KIDNEY FAILURE, UNSPECIFIED; N18.9 - CHRONIC KIDNEY DISEASE, UNSPECIFIED Qualifiers: Acute renal failure type: unspecified Chronic kidney disease stage: stage 3 (moderate) Qualified Code(s): N17.9 - Acute kidney failure, unspecified; N18.3 - Chronic kidney disease, stage 3 (moderate) (3) Hypertensive heart disease Assessment/Plan: Continue f/u BP Labetalol/Norvasc/Hydralazine OFF ARB/ ABDULAZIZ by nephrology due to high Creat Code(s): I11.9 - HYPERTENSIVE HEART DISEASE WITHOUT HEART FAILURE Qualifiers: Heart failure presence: without heart failure Qualified Code(s): I11.9 - Hypertensive heart disease without heart failure
--- NOTE | 2018-03-23 07:15 | DS ---
Physical Examination Vital Signs: Vital Signs Temperature 98.3 F 03/23/18 06:20 Pulse Rate 79 03/23/18 06:20 Respiratory Rate 18 03/23/18 06:20 Blood Pressure 130/61 03/23/18 06:20 O2 Sat by Pulse Oximetry (%) 99 03/22/18 21:00 Constitutional: Yes: No Distress, Calm Eyes: Yes: Conjunctiva Clear, EOM Intact HENT: Yes: Atraumatic, Normocephalic. No: Drooling Neck: Yes: Supple, Trachea Midline Respiratory: Yes: Regular, CTA Bilaterally Gastrointestinal: Yes: Normal Bowel Sounds, Soft, Abdomen, Obese ...Rectal Exam: Yes: Deferred Breast(s): Yes: WNL Musculoskeletal: No: Back Pain Extremities: No: Calf Tenderness, Cold, Cyanosis Edema: No Peripheral Pulses WNL: Yes Integumentary: Yes: WNL Neurological: Yes: Alert, Oriented. No: Aphasia ...Motor Strength: WNL Psychiatric: Yes: WNL Labs: CBC, BMP 03/21/18 08:53 Discharge Summary Reason For Visit: ACUTE RENAL FAILURE SUPERIMPOSED ON CHRONIC KIDNEY Current Active Problems Acute flank pain (Acute) Acute on chronic renal failure (Acute) Hypertensive heart disease (Acute) Lupus nephritis (Acute) Rheumatoid arthritis (Acute) Condition: Stable - Instructions Referrals: David Rangel MD [Primary Care Provider] - - Home Medications Comprehensive Discharge Medication List: Ambulatory Orders Hydroxychloroquine Sulfate 200 mg PO BID 08/06/12 Mycophenolate Mofetil [Cellcept -] 360 mg PO BID 08/06/12 Simvastatin [Zocor -] 20 mg PO DAILY 08/06/12 predniSONE [Deltasone -] 10 mg PO DAILY 08/06/12 Losartan Potassium [Cozaar] 100 mg PO DAILY 05/14/15 Spironolactone [Aldactone -] 25 mg PO BID 05/14/15 Furosemide [Lasix -] 40 mg PO DAILY 11/29/15 Amitriptyline HCl [Elavil -] 25 mg PO HS 03/18/18 Amlodipine Besylate [Norvasc -] 10 mg PO DAILY 03/18/18 Guar Gum [Benefiber] 1 each PO BID PRN 03/18/18 Metoprolol Tartrate [Lopressor] 100 mg PO BID 03/18/18 Torsemide [Demadex -] 20 mg PO BID 03/18/18 Tramadol HCl/Acetaminophen [Ultracet Tablet] 1 each PO QID PRN 03/18/18 Zolpidem Tartrate [Ambien] 10 mg PO HS PRN 03/18/18 Simvastatin 20 mg PO HS 03/19/18
[2018-03-23 08:01] LABS: ANION GAP 9 MMOL/L (8-16); BLOOD UREA NITROGEN 54 mg/dL (7-18); CALCIUM 7.9 mg/dL (8.5-10.1); CHLORIDE 112 mmol/L (98-107); CO2 22 mmol/L (21-32); CREATININE 4.8 mg/dL (0.55-1.3); GLUCOSE,RANDOM 86 mg/dL (74-106); POTASSIUM 3.9 mmol/L (3.5-5.1); SODIUM 143 mmol/L (136-145)
[2018-03-23 09:52] VITALS: BP 141/76; PULSE 82; TEMP 98.1
[2018-03-23] MEDS: HEPARIN NA (PORCINE) 5,000 UNITS/ML 1ML VIAL SQ SCH (09:53)
[2018-03-23] MEDS: MYCOPHENOLATE SODIUM 360 MG TABLET.DR PO SCH (09:54)
[2018-03-23] MEDS: amLODIPine BESYLATE 10 MG TABLET (FP) PO SCH (09:54)
[2018-03-23] MEDS: HYDROXYCHLOROQUINE SO4 200 MG TABLET (FP) PO SCH (09:54)
[2018-03-23] MEDS ORDERED: MYCOPHENOLATE SODIUM 360 MG TABLET.DR PO SCH (11:24)
--- NOTE | 2018-03-23 11:39 | PN ---
Progress Note (short form) - Note Progress Note: Renal follow up for ANEL Pt seen and examined at the bedside had some dizziness and lightheadedness last night that improved s/p IVF no sob, cp, flank pain, N/V/D making urine Vital Signs Temperature 98.1 F 03/23/18 09:51 Pulse Rate 82 03/23/18 09:51 Respiratory Rate 18 03/23/18 09:51 Blood Pressure 141/76 03/23/18 09:51 O2 Sat by Pulse Oximetry (%) 99 03/22/18 21:00 NAD awake and alert neck supple no JVD RRR CTA soft NT/ND, obese Trace LE edema CBC, BMP 03/21/18 08:53 03/23/18 06:00 Current Medications Acetaminophen/Butalbital/Caffeine (Fioricet -) 1 tablet PO Q6H PRN PRN Reason: HEADACHE Last Admin: 03/21/18 17:39 Dose: 1 tablet Amitriptyline HCl (Elavil -) 25 mg PO HS [facility] Last Admin: 03/22/18 22:02 Dose: 25 mg Amlodipine Besylate (Norvasc -) 10 mg PO DAILY [facility] Last Admin: 03/23/18 09:54 Dose: 10 mg Atorvastatin Calcium (Lipitor -) 20 mg PO HS [facility] Last Admin: 03/22/18 22:02 Dose: 20 mg Heparin Sodium (Porcine) (Heparin -) 5,000 unit SQ BID [facility] Last Admin: 03/23/18 09:53 Dose: Not Given Hydralazine HCl (Apresoline -) 100 mg PO TID [facility] Last Admin: 03/23/18 06:42 Dose: Not Given Hydroxychloroquine Sulfate (Plaquenil -) 200 mg PO BID [facility] Last Admin: 03/23/18 09:54 Dose: 200 mg Labetalol HCl (Normodyne -) 300 mg PO BID [facility] Mycophenolate Sodium (Mycophenolic Acid) 720 mg PO BID [facility] Ondansetron HCl (Zofran -) 4 mg PO Q8H PRN PRN Reason: NAUSEA AND/OR VOMITING Prednisone (Deltasone -) 40 mg PO DAILY [facility] Last Admin: 03/23/18 09:53 Dose: 40 mg Tramadol HCl (Ultram -) 25 mg PO TID [facility] Last Admin: 03/23/18 06:32 Dose: 25 mg This is a 32 year old AA woman with hx of SLE, Lupus Nephritis, CKD with baseline Cr ~2.6, Hypertension who presented with right flank pain and found to have ANEL. 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 Rodríguez within 1 week Transfer to [facility] pending Suhail Campbell Do
--- NOTE | 2018-03-23 12:10 | PN ---
Progress Note, Physician History of Present Illness: Right flank pain improved. - Current Medication List Current Medications: Active Medications Acetaminophen/Butalbital/Caffeine (Fioricet -) 1 tablet PO Q6H PRN PRN Reason: HEADACHE Last Admin: 03/21/18 17:39 Dose: 1 tablet Amitriptyline HCl (Elavil -) 25 mg PO HS [facility] Last Admin: 03/22/18 22:02 Dose: 25 mg Amlodipine Besylate (Norvasc -) 10 mg PO DAILY [facility] Last Admin: 03/23/18 09:54 Dose: 10 mg Atorvastatin Calcium (Lipitor -) 20 mg PO HS [facility] Last Admin: 03/22/18 22:02 Dose: 20 mg Heparin Sodium (Porcine) (Heparin -) 5,000 unit SQ BID [facility] Last Admin: 03/23/18 09:53 Dose: Not Given Hydralazine HCl (Apresoline -) 100 mg PO TID [facility] Last Admin: 03/23/18 06:42 Dose: Not Given Hydroxychloroquine Sulfate (Plaquenil -) 200 mg PO BID [facility] Last Admin: 03/23/18 09:54 Dose: 200 mg Labetalol HCl (Normodyne -) 300 mg PO BID [facility] Mycophenolate Sodium (Mycophenolic Acid) 720 mg PO BID [facility] Ondansetron HCl (Zofran -) 4 mg PO Q8H PRN PRN Reason: NAUSEA AND/OR VOMITING Prednisone (Deltasone -) 40 mg PO DAILY [facility] Last Admin: 03/23/18 09:53 Dose: 40 mg Tramadol HCl (Ultram -) 25 mg PO TID [facility] Last Admin: 03/23/18 06:32 Dose: 25 mg - Objective Vital Signs: Vital Signs Temperature 98.1 F 03/23/18 09:51 Pulse Rate 82 03/23/18 09:51 Respiratory Rate 18 03/23/18 09:51 Blood Pressure 141/76 03/23/18 09:51 O2 Sat by Pulse Oximetry (%) 99 03/22/18 21:00 Labs: CBC, BMP 03/21/18 08:53 03/23/18 06:00 Problem List - Problems (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 DISEASE IN SYSTEMIC LUPUS ERYTHEMATOSUS (2) Hypertensive heart disease Code(s): I11.9 - HYPERTENSIVE HEART DISEASE WITHOUT HEART FAILURE Qualifiers: Heart failure presence: without heart failure Qualified Code(s): I11.9 - Hypertensive heart disease without heart failure (3) Rheumatoid arthritis Code(s): M06.9 - RHEUMATOID ARTHRITIS, UNSPECIFIED Qualifiers: Rheumatoid factor presence: unspecified presence (4) Acute on chronic renal failure Code(s): N17.9 - ACUTE KIDNEY FAILURE, UNSPECIFIED; N18.9 - CHRONIC KIDNEY DISEASE, UNSPECIFIED Qualifiers: Acute renal failure type: unspecified Chronic kidney disease stage: stage 3 (moderate) Qualified Code(s): N17.9 - Acute kidney failure, unspecified; N18.3 - Chronic kidney disease, stage 3 (moderate) Assessment/Plan 1. Acute on CKD due to NSAID use 2. Lupus nephritis 3. HTN 4. RA PLAN: 1. Continue Losartan and Hydralazine 2. Continue Lopressor, Norvasc and Zocor 3. Maintain on Plaquenil, Cellcept, Prednisone per rheumatology and avoid NSAIDs 4. Review prior echocardiography report
[2018-03-23] MEDS ORDERED: LABETALOL HCL 200 MG TABLET (FP) PO SCH (22:00)
== END 2018-03-23 12:33 | disposition home or self-care (01) | DRG 683 ==
LOC: JER 13:26 → JERBED 23:23 → J7W 03-19 03:21 → OBSVTOIN 03-21 11:51
PROVIDERS: ADMIT Internal Medicine; ATTEND Internal Medicine
DX: N17.9 Acute kidney failure, unspecified (principal); Z68.41 Body mass index [BMI] 40.0-44.9, adult; M06.80 Other specified rheumatoid arthritis, unspecified site; I12.9 Hypertensive chronic kidney disease with stage 1 through stage 4 chronic kidney disease, or unspecified chronic kidney disease; N18.3 Chronic kidney disease, stage 3 (moderate); G47.00 Insomnia, unspecified; M32.14 Glomerular disease in systemic lupus erythematosus; E87.6 Hypokalemia; R10.9 Unspecified abdominal pain; E66.8 Other obesity; M51.27 Other intervertebral disc displacement, lumbosacral region; D64.9 Anemia, unspecified
CPT/HCPCS: 36415; 72131-TC; 74176; 76775-TC; 76856-TC; 80048; 80053; 81003; 81015; 82570; 82962; 83735; 84156; 84703; 85025; 86038; 86160; 86225; 87086; 99285-25; G0378; J0131; J0735; J1644; J7030